=== PATIENT | male | born 1975 | race Caucasian/White ===

== ENCOUNTER 2018-06-10 13:09 | Inpatient (IN) | payer BC, OTHER ==
[~2018-06-10] VITALS: Ht 165.1 cm; Wt 103.1 kg
[2018-06-10] VITALS (14 sets, daily range): BP systolic 106–150; BP diastolic 68–100; PULSE 69–97; TEMP 36.8–36.9; O2SAT 93–97; Ht 165.1 cm; Wt 103.1 kg
[~2018-06-10 13:09] MED LIST: HYDR-5688 PO
[2018-06-10] MEDS ORDERED: ASPIRIN 81 MG CHEW PO STA (13:34)
[2018-06-10] MEDS ORDERED: NITROGLYCERIN 0.4 MG SL PER TAB CHARGE SL PRN ×2 (13:45→15:30)
--- NOTE | 2018-06-10 13:51 | EMERGENCY ROOM VISIT NOTE ---
ED Visit Note First contact with patient: 13:27 CHIEF COMPLAINT: Chest pain HISTORY OF PRESENTING ILLNESS: This is a 43-year-old male who presents to the emergency department with complaint of abrupt onset of midsternal chest pain that started at 1 PM today. Patient states pain radiates down his left arm. The pain started while he was at rest, and he has not noted an exertional component. He has had associated shortness of breath, nausea, and sweats. He describes the pain as severe and pressure-like, constant, nothing makes it better or worse, currently rates as 10/10. He did not take any medications for his pain. Of note, the patient states that he woke up this morning with some indigestion and burping up a "rotten eggs taste" and has been having indigestion off and on all morning. He denies any history of indigestion or GERD and states this is unusual for him. He did not take any medications for his indigestion. He uses chewing tobacco daily. He has a history of diabetes, but states that he lost a lot of weight and does not need to be on any medications and is not on any insulin. He denies any history of hypertension, hyperlipidemia. Grandfather with history of coronary artery disease, no other family history of this. REVIEW OF SYSTEMS: A complete 10 point review of systems was reviewed with the patient with pertinent positives and negatives as per history of present illness. All else were negative. PAST MEDICAL HISTORY: Reviewed in chart, see problem list below. SOCIAL HISTORY: Lives at home. Denies smoking, but does chew tobacco. ALLERGIES: Reviewed in chart, see below. PHYSICAL EXAM: CONSTITUTIONAL: Cooperative. Appears uncomfortable and in pain. Diaphoretic, tearful, hyperventilating. No pallor. Able to speak in full sentences. HEENT: Normocephalic, atraumatic. Pupils equal, round and reactive to light, EOMI. TMs normal. Pharynx normal. NECK: Supple, full active range of motion without discomfort. RESPIRATORY: Clear to auscultation bilaterally with no wheezing, crackles, rhonchi or stridor. Equal expansion bilaterally. CARDIOVASCULAR: Regular rate and rhythm with no murmurs, rubs or gallops. Normal peripheral perfusion. No peripheral edema. GASTROINTESTINAL: Soft, nontender, nondistended. No palpable masses or HSM. Bowel sounds present in all quadrants. MUSCULOSKELETAL: Full range of motion of all joints without discomfort. INTEGUMENTARY: No rash or other significant dermatologic conditions noted. NEUROLOGIC: Alert and oriented X 4 with normal affect. Normal strength and sensation in all 4 extremities. No focal neurologic deficits noted. Normal speech. ED COURSE AND MEDICAL DECISION MAKING: CC: Patient presenting with complaint of chest pain DIFFERENTIAL DIAGNOSIS: Includes, but not limited to acute coronary syndrome, pulmonary embolism, aortic dissection, pneumothorax, pericarditis, myocarditis, anxiety, musculoskeletal pain, GERD, costochondritis, pneumonia, among others. INTERPRETATION OF LABS: No leukocytosis, no anemia, normal platelets, hyperglycemia, no other significant electrolyte abnormalities, normal renal function, normal liver enzymes and lipase. POC troponin is elevated. CPK and CK-MB normal. IMAGIN view chest x-ray reviewed by myself and read by the radiologist and shows no acute cardiopulmonary disease by my interpretation. EKG: Initial EKG performed at 1310, shows normal sinus rhythm with a rate of 9/ min, no acute ST or T-wave changes appreciated, no ectopy, possible Q waves in lead III by my interpretation. Repeat EKG performed at 1356, showing sinus tachycardia with a rate of 112 bpm and now concerning for acute ST elevation in the inferior leads concerning for acute STEMI. MEDICATION RECONCILIATION: I attest that I have personally reviewed the patient 's current medication list. INITIAL VITAL SIGNS REVIEW: I reviewed the patient's initial vital signs and interpret them as follows: T: Afebrile; BP: Hypertensive; HR: Within normal limits; RR: Tachypneic; Pulse Ox: Within normal limits on room air. Blood pressure screening: The patient was found to have an elevated blood pressure and was referred to the acute cardiology team for further management. SUMMARY: Patient was evaluated at bedside, history and physical exam performed. Patient is alert and oriented, appears in acute distress, diaphoretic and tachypneic, and appears to be in severe pain. Patient's symptoms and history most concerning for acute coronary syndrome, 324 mg chewable aspirin ordered and sublingual nitroglycerin ordered. Review of initial EKGs with no acute ST or T-wave changes, possible Q-wave development in lead III. Orders were placed at bedside for labs and chest x-ray to evaluate for cardiopulmonary disease. Patient discussed with Dr. Valiente, who agrees with my assessment and plan. Labs and imaging reviewed as above. POC troponin is elevated at 0.080. Repeat EKG reviewed now concerning for an acute STEMI, most likely an acute inferior infarct. Discussed with Dr. Valiente, who also reviewed EKG and agrees with calling Heart Alert. Heart Alert was called at 1401, Dr. Grider at bedside with plans to take patient to the Diabetes Manager. Patient reassessed multiple times throughout ED stay, chest pain was unrelieved with nitroglycerin, IV morphine was ordered. 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 Patient was stable at time of transport to the Diabetes Manager. CRITICAL CARE NOTE: I have personally spent greater than 30 minutes of critical care time in the direct management of this patient. This includes bedside care, interpretation of diagnostic studies, and testing, discussion with consultants, patient, and family members, and other required patient management activities. This 30 minutes is in excess of all separately billable procedures. Problem List Medical Problems: (1) Obstructive sleep apnea Status: Chronic Current/Historical Medications Scheduled PRN Hydrocodone/Acetaminophen 5MG/325MG ([place] 5MG/325MG), 1-2 TABLETS PO Q6 PRN for Pain Allergies Coded Allergies: Penicillins (Verified Allergy, Unknown, ?, 05/22/15) PT STATES, "MY MOTHER ALWAYS TOLD ME I WAS ALLERGIC TO PENICILLIN. I DONT REMEMBER WHAT REACTION I HAD" Vital Signs Date Time Temp Pulse Resp B/P (MAP) Pulse Ox O2 Delivery O2 Flow Rate FiO2 06/10/18 14:09 92 30 99 Room Air 06/10/18 14:04 90 06/10/18 13:48 158/119 06/10/18 13:43 167/122 06/10/18 13:39 88 99 Room Air 06/10/18 13:37 Room Air 06/10/18 13:37 Room Air 06/10/18 13:32 185/144 06/10/18 13:25 156/120 06/10/18 13:24 89 06/10/18 13:09 36.8 94 28 183/123 98 Room Air Laboratory Results 06/10/18 13:25 Red Blood Count 4.81, Mean Corpuscular Volume 89.2, Mean Corpuscular Hemoglobin 33.1, Mean Corpuscular Hemoglobin Concent 37.1, Mean Platelet Volume 10.9, Neutrophils (%) (Auto) 55.7, Lymphocytes (%) (Auto) 33.8, Monocytes (%) (Auto) 8.2, Eosinophils (%) (Auto) 1.5, Basophils (%) (Auto) 0.7, Neutrophils # (Auto) 4.13, Lymphocytes # (Auto) 2.51, Monocytes # (Auto) 0.61, Eosinophils # (Auto) 0.11, Basophils # (Auto) 0.05 06/10/18 13:25 Test 06/10/18 13:25 06/10/18 13:29 06/10/18 15:18 White Blood Count 7.42 K/uL (4.8-10.8) Red Blood Count 4.81 M/uL (4.7-6.1) Hemoglobin 15.9 g/dL (14.0-18.0) Hematocrit 42.9 % (42-52) Mean Corpuscular Volume 89.2 fL (80-100) Mean Corpuscular Hemoglobin 33.1 pg (25-34) Mean Corpuscular Hemoglobin Concent 37.1 g/dl (32-36) Platelet Count 246 K/uL (130-400) Mean Platelet Volume 10.9 fL (7.4-10.4) Neutrophils (%) (Auto) 55.7 % Lymphocytes (%) (Auto) 33.8 % Monocytes (%) (Auto) 8.2 % Eosinophils (%) (Auto) 1.5 % Basophils (%) (Auto) 0.7 % Neutrophils # (Auto) 4.13 K/uL (1.4-6.5) Lymphocytes # (Auto) 2.51 K/uL (1.2-3.4) Monocytes # (Auto) 0.61 K/uL (0.11-0.59) Eosinophils # (Auto) 0.11 K/uL (0-0.5) Basophils # (Auto) 0.05 K/uL (0-0.2) RDW Standard Deviation 40.3 fL (36.4-46.3) RDW Coefficient of Variation 12.7 % (11.5-14.5) Immature Granulocyte % (Auto) 0.1 % Immature Granulocyte # (Auto) 0.01 K/uL (0.00-0.02) Anion Gap 12.0 mmol/L (3-11) Est Creatinine Clear Calc Drug Dose 99.9 ml/min Estimated GFR () 96.7 Estimated GFR (Non- 83.4 BUN/Creatinine Ratio 14.4 (10-20) Calcium Level 9.7 mg/dl (8.5-10.1) Total Bilirubin 0.6 mg/dl (0.2-1) Direct Bilirubin < 0.1 mg/dl (0-0.2) Aspartate Amino Transf (AST/SGOT) 19 U/L (15-37) Alanine Aminotransferase (ALT/SGPT) 30 U/L (12-78) Alkaline Phosphatase 56 U/L (45-117) Total Creatine Kinase 182 U/L (39-308) Creatine Kinase MB 1.9 ng/ml (0.5-3.6) Creatine Kinase MB Ratio 1.0 (0-3.0) Total Protein 7.7 gm/dl (6.4-8.2) Albumin 4.3 gm/dl (3.4-5.0) Lipase 90 U/L (73-393) Bedside Troponin I 0.080 ng/ml (0-0.045) Medications Administered Medications (Trade) Dose Ordered Sig/Denise Route Start Time Stop Time Status Last Admin Dose Admin Nitroglycerin (Nitrostat Tab) 0.4 mg Q5M PRN SL 06/10/18 13:45 07/10/18 13:44 06/10/18 13:48 0.4 MG Aspirin (Aspirin Chew) 324 mg NOW STAT PO 06/10/18 13:34 06/10/18 13:36 DC 06/10/18 13:34 324 MG Morphine Sulfate (MoRPHine SULFATE INJ) 4 mg NOW STAT IV 06/10/18 13:52 06/10/18 13:53 DC 06/10/18 13:52 4 MG Heparin Sodium (Porcine) (Heparin Sq 5000 Unit/0.5ml) 5,000 unit STK-MED ONCE .ROUTE 06/10/18 14:04 06/10/18 14:05 DC 06/10/18 14:04 4,000 UNIT Midazolam HCl (Versed Inj) 2 mg STK-MED ONCE .ROUTE 06/10/18 14:11 06/10/18 14:12 DC 06/10/18 14:11 1 MG Fentanyl Citrate (Fentanyl Inj) 100 mcg STK-MED ONCE .ROUTE 06/10/18 14:11 06/10/18 14:12 DC 06/10/18 14:11 25 MCG Heparin Sodium (Porcine) (Heparin Iv Bolus) 10,000 unit STK-MED ONCE .ROUTE 06/10/18 14:12 06/10/18 14:13 DC 06/10/18 14:12 10,000 UNIT Metoprolol Tartrate (Lopressor Iv) 5 mg STK-MED ONCE .ROUTE 06/10/18 14:49 06/10/18 14:50 DC 06/10/18 14:49 5 MG Ticagrelor (Brilinta Tab) 180 mg STK-MED ONCE PO 06/10/18 15:23 06/10/18 15:24 DC 06/10/18 15:23 180 MG Departure Information Impression Primary Impression: Acute myocardial infarction Dispostion Admitted as an inpatient (Diabetes Manager) Condition FAIR Referrals Carlos Rider M.D.([facility]) (PCP) Patient Instructions My [facility] Problem Qualifiers Primary Impression: Acute myocardial infarction Myocardial infarction type: ST elevation myocardial infarction Involved coronary artery: unspecified coronary artery Qualified Codes: I21.3 - ST elevation (STEMI) myocardial infarction of unspecified site
[2018-06-10] MEDS ORDERED: MoRPHine SULFATE 4 MG/ML 1 ML CARP\\VIAL IV STA (13:52)
[2018-06-10 14:00] LABS: BASO % 0.7 %; BASO ABS # 0.05 K/uL (0-0.2); EOS % 1.5 %; EOS ABS # 0.11 K/uL (0-0.5); HEMATOCRIT 42.9 % (42-52); HEMOGLOBIN 15.9 g/dL (14.0-18.0); IG# 0.01 K/uL (0.00-0.02); LYMPH % 33.8 %; LYMPH ABS # 2.51 K/uL (1.2-3.4); MEAN CELL VOLUME 89.2 fL (80-100); MEAN CORPUSCULAR HEMOGLOBIN 33.1 pg (25-34); MEAN CORPUSCULAR HGB CONC 37.1 g/dl (32-36); MEAN PLATELET VOLUME 10.9 fL (7.4-10.4); MONO % 8.2 %; MONO ABS # 0.61 K/uL (0.11-0.59); NEUT % 55.7 %; NEUT ABS # 4.13 K/uL (1.4-6.5); PLATELET COUNT 246 K/uL (130-400); RED CELL DISTRIBUTION WIDTH CV 12.7 % (11.5-14.5); RED CELL DISTRIBUTION WIDTH SD 40.3 fL (36.4-46.3); WHITE BLOOD COUNT 7.42 K/uL (4.8-10.8)
[2018-06-10] MEDS ORDERED: HEPARIN SOD 5000 UNIT/0.5 ML CARP ONE (14:04)
--- NOTE | 2018-06-10 14:05 | DIAGNOSTIC IMAGING REPORT ---
SINGLE VIEW CHEST CLINICAL HISTORY: Atypical chest pain. FINDINGS: An AP, portable, upright chest radiograph is compared to study dated 05/08/2009. The examination is degraded by portable technique and apical lordotic positioning. The cardiomediastinal silhouette is unremarkable. The lungs and pleural spaces are clear. No pneumothorax is seen. The bony thorax is grossly intact. IMPRESSION: No active disease in the chest. Electronically signed by: Elroy Mejia M.D. 06/10/2018 2:04 PM Dictated Date/Time: 06/10/2018 2:01 PM
[2018-06-10] MEDS ORDERED: MIDAZOLAM HCL 1 MG/ML 2ML VIAL ONE (14:11)
[2018-06-10] MEDS ORDERED: FENTANYL CITRATE INJ 50 MCG/1 ML 2 ML VIAL ONE (14:11)
[2018-06-10] MEDS ORDERED: NiCARDipine HCL INJ 2.5 MG/ML 10 ML AMP ONE (14:12)
[2018-06-10] MEDS ORDERED: HEPARIN SOD (PORCINE) 1000 UNIT/ML 10 ML VIAL ONE (14:12)
[2018-06-10] MEDS ORDERED: NITROGLYCERIN/D5W 100MCG/ML 20ML SYR ONE (14:15)
[2018-06-10 14:23] LABS: ALBUMIN 4.3 gm/dl (3.4-5.0); ALKALINE PHOSPHATASE 56 U/L (45-117); ALT/SGPT 30 U/L (12-78); AST/SGOT 19 U/L (15-37); BLOOD UREA NITROGEN 15 mg/dl (7-18); CALCIUM 9.7 mg/dl (8.5-10.1); CARBON DIOXIDE 24 mmol/L (21-32); CREATININE 1.07 mg/dl (0.60-1.40); GLUCOSE 244 mg/dl (70-99); LIPASE 90 U/L (73-393); POTASSIUM 3.6 mmol/L (3.5-5.1); SODIUM 138 mmol/L (136-145); TOTAL PROTEIN 7.7 gm/dl (6.4-8.2)
[2018-06-10 14:31] LABS: CKMB 1.9 ng/ml (0.5-3.6)
[2018-06-10] MEDS ORDERED: METOPROLOL TARTRATE 1 MG/ML VIAL ONE (14:49)
[2018-06-10] MEDS ORDERED: TICAGRELOR 90 MG TAB PO ONE (15:23)
[2018-06-10] MEDS ORDERED: LORAZEPAM 0.5 MG TAB PO PRN (15:30)
[2018-06-10] MEDS ORDERED: MoRPHine SULFATE 2 MG/ML CARP IV PRN (15:30)
[2018-06-10] MEDS ORDERED: ATROPINE SULFATE 0.1 MG/ML 5ML SYR IV PRN (15:30)
[2018-06-10] MEDS ORDERED: ONDANSETRON INJ 2 MG/ML 2 ML VIAL IV PRN (15:30)
[2018-06-10] MEDS ORDERED: ACETAMINOPHEN 325 MG TAB PO PRN (15:30)
[2018-06-10] MEDS ORDERED: ONDANSETRON INJ 8 MG in DEXTROSE 5% 50ML 50 ML IV PRN (15:30)
[2018-06-10] MEDS ORDERED: LORAZEPAM INJ 0.5 MG in SYRINGE 0.75 ML IV PRN (15:30)
[2018-06-10 15:40] LABS: PTT PATIENT 20.9 SECONDS (21.0-31.0)
[2018-06-10] MEDS ORDERED: SODIUM CHLORIDE 0.9% 1000ML 1,000 ML IV SCH (16:00)
[2018-06-10] MEDS ORDERED: NITROGLYCERIN 2% OINTMENT 30GM TUBE EXT ONE (16:12)
[2018-06-10] MEDS: NITROGLYCERIN 2% OINTMENT 30GM TUBE EXT SCH ×2 (16:19→23:14)
[2018-06-10] MEDS ORDERED: GLUCOSE 40% GEL 15 GM TUBE PO PRN (16:30)
[2018-06-10] MEDS ORDERED: CARBOHYDRATES FOR HYPOGLYCEMIA PO PRN (16:30)
[2018-06-10] MEDS ORDERED: GLUCOSE 10 TABS/TUBE PO PRN (16:30)
[2018-06-10] MEDS ORDERED: GLUCAGON FOR INJ 1 MG VIAL SQ PRN (16:30)
[2018-06-10] MEDS ORDERED: DEXTROSE 50% 50 ML SYR IV PRN (16:30)
--- NOTE | 2018-06-10 16:31 | Critical Care Consultation ---
Critical Care Consultation Date of Consultation: Jun 10, 2018. Attending Physician: Leanna Mejia MD Reason for Consultation: ST elevation [place]. History of Present Illness Dear Dr. Grider: Thank you for your kind referral Mr. [place] to critical care service. This is 43-year-old gentleman with history of diabetes, morbid obesity, non-smoker, no history of hypertension, not on treatment for lipid-lowering agent, does have a family history with coronary artery disease in his grandfather, presented to the hospital after he felt chest pain mainly in the substernal area radiating to his left arm. The patient was loading his truck to go camping. The pain become more excruciating and become 10 out of 10 and lasted for over than half an hour where he presented to the hospital via the ambulance. The patient in the ED underwent a workup for ACS, found to have ST elevation in 2, 3 and aVF. Heart alert was called and Dr. Grider took the patient to the [facility] where he underwent PCI. He did have occlusion to the left circumflex, with one FLORENCE placed. Another branch was not approachable or amenable to stenting according to Dr. Shepard. Right radial approach was used for the cardiac cath. The patient in the ICU, has been feeling much better, his chest pain is down to 2/10. He denies any dizziness, shortness of breath, no pain in his arms, does not have any sore throat heartburn or abdominal pain, there is no free nausea. The rest of his review of system was totally unremarkable. His vital signs were reported to be with a blood pressure 150 over 83, heart rate of 90 normal sinus rhythm, respiratory rate of 22 and O2 sat is 96% on room air. Family History FHx: diabetes Social History Smoking Status: Never Smoker Drug Use: none Marital Status: Housing Status: lives with family Occupation Status: employed Allergies Coded Allergies: Penicillins (Verified Allergy, Unknown, ?, 05/22/15) PT STATES, "MY MOTHER ALWAYS TOLD ME I WAS ALLERGIC TO PENICILLIN. I DONT REMEMBER WHAT REACTION I HAD" Home Medications Scheduled PRN Hydrocodone/Acetaminophen 5MG/325MG ([place] 5MG/325MG), 1-2 TABLETS PO Q6 PRN for Pain Current Inpatient Medications Current Inpatient Medications Medications (Trade) Dose Ordered Sig/Denise Route Start Time Stop Time Status Last Admin Dose Admin Nitroglycerin (Nitrostat Tab) 0.4 mg UD PRN SL 06/10/18 15:30 07/10/18 15:29 Sodium Chloride 1,000 ml @ 80 mls/hr [id number] IV 06/10/18 16:00 06/10/18 23:59 Atropine Sulfate (Atropine Sulfate 0.1mg/ml Inj) 0.5 mg ONE PRN IV 06/10/18 15:30 07/10/18 15:29 Ondansetron HCl (Zofran Inj) 4 mg Q6H PRN IV 06/10/18 15:30 07/10/18 15:29 Ondansetron HCl 8 mg/Dextrose 54 ml @ 200 mls/hr Q6H PRN IV 06/10/18 15:30 07/10/18 15:29 Aspirin (Ecotrin Tab) 81 mg QAM PO 06/11/18 09:00 07/11/18 08:59 Metoprolol Tartrate (Lopressor Tab) 25 mg Q12 PO 06/10/18 21:00 07/10/18 20:59 Lisinopril (Zestril Tab) 5 mg QAM PO 06/11/18 09:00 07/11/18 08:59 Acetaminophen (Tylenol Tab) 650 mg Q4H PRN PO 06/10/18 15:30 07/10/18 15:29 Morphine Sulfate (MoRPHine SULFATE INJ) 2 mg Q5M PRN IV 06/10/18 15:30 06/24/18 15:29 Lorazepam 0.5 mg/ Syringe 1 ml @ 1 mls/min Q6H PRN IV 06/10/18 15:30 07/10/18 15:29 Lorazepam (Ativan Tab) 0.5 mg Q6H PRN PO 06/10/18 15:30 07/10/18 15:29 Atorvastatin Calcium (Lipitor Tab) 80 mg QAM PO 06/11/18 09:00 07/11/18 08:59 Ticagrelor (Brilinta Tab) 90 mg BID PO 06/10/18 21:00 07/10/18 20:59 Nitroglycerin (Nitroglycerin 2% Oint) 1 inch Q6H EXT 06/10/18 16:30 07/10/18 16:29 Review of Systems Constitutional: No fever, No chills, No sweats, No weight loss, No weakness, No fatigue, No problem reported Eyes: No worsening of vision, No eye pain, No redness, No discharge, No diplopia, No problem reported ENT: No hearing loss, No unusual epistaxis, No nasal symptoms, No sore throat, No tinnitus, No dental problems, No trouble swallowing, No problem reported Respiratory: No cough, No sputum, No wheezing, No shortness of breath, No dyspnea on exertion, No dyspnea at rest, No hemoptysis, No problem reported Cardiovascular: + chest pain Abdomen: No pain, No nausea, No vomiting, No diarrhea, No constipation, No GI bleeding, No problem reported Musculoskeletal: + problem reported (Referred pain to the left arm.) Neurologic: No memory loss, No paralysis, No weakness, No numbness/tingling, No vertigo, No balance problems, No problem reported Psychiatric: No depression symptoms, No anhedonism, No anxiety, No insomnia, No substance abuse, No problem reported Endocrine: No fatigue, No excessive thirst, No excessive urination, No problem reported Hematologic / Lymphatic: No abnormal bleeding/bruising, No clotting problems, No swollen lymph nodes, No night sweats, No problem reported Physical Exam Date Time Temp Pulse Resp B/P (MAP) Pulse Ox O2 Delivery O2 Flow Rate FiO2 06/10/18 15:32 65 16 129/89 (102) 95 Room Air 06/10/18 15:24 65 16 132/90 (104) 95 Room Air 06/10/18 14:09 92 30 99 Room Air 06/10/18 14:04 90 06/10/18 13:48 158/119 06/10/18 13:43 167/122 06/10/18 13:39 88 99 Room Air 06/10/18 13:37 Room Air 06/10/18 13:37 Room Air 06/10/18 13:32 185/144 06/10/18 13:25 156/120 06/10/18 13:24 89 06/10/18 13:09 36.8 94 28 183/123 98 Room Air General Appearance: well-appearing Eyes: EOMI ENT: normal mouth exam, normal throat exam Neck: trachea midline Respiratory: breath sounds normal, clear to auscultation, clear to percussion Cardiovasular: regular rate/rhythm, normal S1S2, no M/G/R, no murmur Abdomen: non tender, no masses, no guarding Lower Extremities: no edema Neuro: alert, oriented x 3, normal motor exam, normal sensation Psychiatric: normal affect, anxious Laboratory Results Last 24 Hours Test 06/10/18 13:25 06/10/18 13:29 White Blood Count 7.42 K/uL Red Blood Count 4.81 M/uL Hemoglobin 15.9 g/dL Hematocrit 42.9 % Mean Corpuscular Volume 89.2 fL Mean Corpuscular Hemoglobin 33.1 pg Mean Corpuscular Hemoglobin Concent 37.1 g/dl Platelet Count 246 K/uL Mean Platelet Volume 10.9 fL Neutrophils (%) (Auto) 55.7 % Lymphocytes (%) (Auto) 33.8 % Monocytes (%) (Auto) 8.2 % Eosinophils (%) (Auto) 1.5 % Basophils (%) (Auto) 0.7 % Neutrophils # (Auto) 4.13 K/uL Lymphocytes # (Auto) 2.51 K/uL Monocytes # (Auto) 0.61 K/uL Eosinophils # (Auto) 0.11 K/uL Basophils # (Auto) 0.05 K/uL RDW Standard Deviation 40.3 fL RDW Coefficient of Variation 12.7 % Immature Granulocyte % (Auto) 0.1 % Immature Granulocyte # (Auto) 0.01 K/uL Prothrombin Time 10.0 SECONDS Prothromb Time International Ratio 1.0 Activated Partial Thromboplast Time 20.9 SECONDS Partial Thromboplastin Ratio 0.8 Sodium Level 138 mmol/L Potassium Level 3.6 mmol/L Chloride Level 102 mmol/L Carbon Dioxide Level 24 mmol/L Anion Gap 12.0 mmol/L Blood Urea Nitrogen 15 mg/dl Creatinine 1.07 mg/dl Est Creatinine Clear Calc Drug Dose 99.9 ml/min Estimated GFR () 96.7 Estimated GFR (Non- 83.4 BUN/Creatinine Ratio 14.4 Random Glucose 244 mg/dl Calcium Level 9.7 mg/dl Total Bilirubin 0.6 mg/dl Direct Bilirubin < 0.1 mg/dl Aspartate Amino Transf (AST/SGOT) 19 U/L Alanine Aminotransferase (ALT/SGPT) 30 U/L Alkaline Phosphatase 56 U/L Total Creatine Kinase 182 U/L Creatine Kinase MB 1.9 ng/ml Creatine Kinase MB Ratio 1.0 Total Protein 7.7 gm/dl Albumin 4.3 gm/dl Triglycerides Level 523 mg/dl Cholesterol Level 198 mg/dl HDL Cholesterol 40 mg/dl LDL Cholesterol Direct 106 mg/dl LDL Cholesterol, Calculated mg/dl VLDL Cholesterol, Calculated mg/dl Cholesterol/HDL Ratio 5.0 Lipase 90 U/L Bedside Troponin I 0.080 ng/ml Diagnostic Results EKG was reviewed which showed ST elevation in lead II, III, aVF. Labs also were reviewed. Assessment & Plan 1. ST elevation [place]. Status post FLORENCE to the LCx. 2. Diabetes type 2. Appeared to be poorly controlled. 3. Obesity. 4. Hypertension. 5. Hyperlipidemia followed on this admission with triglycerides of over 500 and total cholesterol 198. Plan: 1. Monitor in the ICU. Post-cath. 2. Post cath management per cardiology. 3. Continue with aspirin and Brilinta. 4. Lipitor 80 mg p.o. daily. 5. Insulin sliding scale with basal at 4 units regular insulin pre-meal and before meals and at bedtime. 6. Nitroglycerin paste, patient blood pressure in the range of 450, possible anxiety and pain related. 7. Currently the patient is almost pain-free. Appears comfortable. 8. Echocardiogram in a.m. 9. Bedrest. 10. Right radial site appears well-maintained, tourniquet in place. Case discussed with multiple disciplines, appreciate all inputs. Critical care time spent with the patient was 35 minutes.
--- NOTE | 2018-06-10 16:38 | History and Physical ---
History & Physical Date & Time of Service: Jun 10, 2018 at 16:27 Chief Complaint: Chest Pain Primary Care Physician: Carlos Rider M.D.(CHEVY) History of Present Illness Source: patient, clinic records, hospital records Patient is a 43-year-old male with a PMH of DM II and tobacco use who presented earlier today after abrupt onset of chest pain at 1 PM. Patient was riding in the car when he experienced sudden, midsternal chest pain with radiation down left arm. Associated symptoms included shortness of breath, nausea and diaphoresis. Heart alert was called in the ED for inferior lead ST elevation and POC troponin was elevated to 0.08. Patient was taken to [facility] where Dr. Grider placed a stent in the left circumflex artery. Patient is recovering well in the ICU. Chest discomfort is a 3/10. Denies any lightheadedness, headache, visual changes, palpitations, shortness of breath, abdominal pain, nausea, vomiting or LE swelling. Chews tobacco daily. Was diagnosed with type 2 diabetes in the past and was on metformin and insulin but stopped taking medication after losing weight. Last hemoglobin A1c was 6.9 in 2014. No personal history of heart disease. Family history of heart disease ( grandfather). Denies history of hypertension or hyperlipidemia. Past Medical/Surgical History Medical Problems: (1) CAD (coronary artery disease) Permanent Comment: s/p stent to left circumflex 06/10/18 Status: Chronic (2) Diabetes mellitus, type II Status: Chronic (3) Obstructive sleep apnea Status: Chronic (4) Tobacco use disorder Status: Chronic Surgical Problems: (1) H/O hernia repair Status: Resolved (2) S/P hernia surgery Status: Resolved Family History FHx: diabetes Social History Smoking Status: Never Smoker Smokeless Tobacco Use: Yes (chews daily ) Alcohol Use: occasionally (3-4 drinks/month) Drug Use: none Marital Status: Housing status: lives with significant other Occupational Status: employed Immunizations History of Influenza Vaccine: N/A History of Tetanus Vaccine?: Yes Tetanus Immunization Date: May 09, 2009 History of Pneumococcal: No History of Hepatitis B Vaccine: Unknown Allergies Coded Allergies: Penicillins (Verified Allergy, Unknown, ?, 05/22/15) PT STATES, "MY MOTHER ALWAYS TOLD ME I WAS ALLERGIC TO PENICILLIN. I DONT REMEMBER WHAT REACTION I HAD" Home Medications Scheduled PRN Hydrocodone/Acetaminophen 5MG/325MG (Oolitic 5MG/325MG), 1-2 TABLETS PO Q6 PRN for Pain Review of Systems Ten systems reviewed and negative except as noted in the HPI. Physical Exam Vital Signs Date Time Temp Pulse Resp B/P (MAP) Pulse Ox O2 Delivery O2 Flow Rate FiO2 06/10/18 15:32 65 16 129/89 (102) 95 Room Air 06/10/18 15:24 65 16 132/90 (104) 95 Room Air 06/10/18 14:09 92 30 99 Room Air 06/10/18 14:04 90 06/10/18 13:48 158/119 06/10/18 13:43 167/122 06/10/18 13:39 88 99 Room Air 06/10/18 13:37 Room Air 06/10/18 13:37 Room Air 06/10/18 13:32 185/144 06/10/18 13:25 156/120 06/10/18 13:24 89 06/10/18 13:09 36.8 94 28 183/123 98 Room Air General Appearance: WD/WN, no apparent distress Head: normocephalic, atraumatic Eyes: normal inspection, PERRL, sclerae normal ENT: normal ENT inspection, hearing grossly normal, pharynx normal Neck: supple, thyroid normal, trachea midline Respiratory/Chest: chest non-tender, lungs clear, normal breath sounds, no respiratory distress, no accessory muscle use Cardiovascular: regular rate, rhythm, no murmur, normal peripheral pulses Abdomen/GI: non tender, soft, no organomegaly Extremities/Musculoskelatal: normal inspection, no calf tenderness, no pedal edema, + pertinent finding (R wrist access point clean, dry. No active bleeding) Neurologic/Psych: no motor/sensory deficits, alert, normal mood/affect, oriented x 3 Skin: normal color, warm/dry Diagnostics Laboratory Results Results Past 24 Hours Test 06/10/18 13:25 06/10/18 13:29 Range/Units White Blood Count 7.42 4.8-10.8 K/uL Red Blood Count 4.81 4.7-6.1 M/uL Hemoglobin 15.9 14.0-18.0 g/dL Hematocrit 42.9 42-52 % Mean Corpuscular Volume 89.2 80-100 fL Mean Corpuscular Hemoglobin 33.1 25-34 pg Mean Corpuscular Hemoglobin Concent 37.1 32-36 g/dl Platelet Count 246 130-400 K/uL Mean Platelet Volume 10.9 7.4-10.4 fL Neutrophils (%) (Auto) 55.7 % Lymphocytes (%) (Auto) 33.8 % Monocytes (%) (Auto) 8.2 % Eosinophils (%) (Auto) 1.5 % Basophils (%) (Auto) 0.7 % Neutrophils # (Auto) 4.13 1.4-6.5 K/uL Lymphocytes # (Auto) 2.51 1.2-3.4 K/uL Monocytes # (Auto) 0.61 0.11-0.59 K/uL Eosinophils # (Auto) 0.11 0-0.5 K/uL Basophils # (Auto) 0.05 0-0.2 K/uL RDW Standard Deviation 40.3 36.4-46.3 fL RDW Coefficient of Variation 12.7 11.5-14.5 % Immature Granulocyte % (Auto) 0.1 % Immature Granulocyte # (Auto) 0.01 0.00-0.02 K/uL Prothrombin Time 10.0 9.0-12.0 SECONDS Prothromb Time International Ratio 1.0 0.9-1.1 Activated Partial Thromboplast Time 20.9 21.0-31.0 SECONDS Partial Thromboplastin Ratio 0.8 Sodium Level 138 136-145 mmol/L Potassium Level 3.6 3.5-5.1 mmol/L Chloride Level 102 98-107 mmol/L Carbon Dioxide Level 24 21-32 mmol/L Anion Gap 12.0 3-11 mmol/L Blood Urea Nitrogen 15 7-18 mg/dl Creatinine 1.07 0.60-1.40 mg/dl Est Creatinine Clear Calc Drug Dose 99.9 ml/min Estimated GFR () 96.7 Estimated GFR (Non- 83.4 BUN/Creatinine Ratio 14.4 10-20 Random Glucose 244 70-99 mg/dl Calcium Level 9.7 8.5-10.1 mg/dl Total Bilirubin 0.6 0.2-1 mg/dl Direct Bilirubin < 0.1 0-0.2 mg/dl Aspartate Amino Transf (AST/SGOT) 19 15-37 U/L Alanine Aminotransferase (ALT/SGPT) 30 12-78 U/L Alkaline Phosphatase 56 45-117 U/L Total Creatine Kinase 182 39-308 U/L Creatine Kinase MB 1.9 0.5-3.6 ng/ml Creatine Kinase MB Ratio 1.0 0-3.0 Total Protein 7.7 6.4-8.2 gm/dl Albumin 4.3 3.4-5.0 gm/dl Triglycerides Level 523 0-150 mg/dl Cholesterol Level 198 0-200 mg/dl HDL Cholesterol 40 mg/dl LDL Cholesterol Direct 106 mg/dl LDL Cholesterol, Calculated mg/dl VLDL Cholesterol, Calculated mg/dl Cholesterol/HDL Ratio 5.0 Lipase 90 73-393 U/L Bedside Troponin I 0.080 0-0.045 ng/ml Microbiology Results 06/10/18 MRSA DNA Surveillance Screen, Received Pending Diagnostic Radiology CXR: IMPRESSION: No active disease in the chest. EKG Sinus tachycardia with ST elevation in leads II, III and aVF. Impression Assessment and Plan Patient is a 43-year-old male with a PMH of DM II and tobacco use who presented earlier today after abrupt onset of chest pain and is s/p stenting to left circumflex artery for acute inferior wall IL. Acute STEMI of inferior wall s/p FLORENCE to LCx -ACS risk factors include DM II (currently not on medications), tobacco use -Management per ICU, cardiology -Continue aspirin, Brilinta -Echo in AM DM II -Previously on metformin and insulin -Stopped taking medications after losing weight -Last a1c in records of 6.9 in 2015 -SSI while in-patient -Repeat a1c pending -Diabetic education Hyperlipidemia -Lipid panel with with triglycerides of over 500 and total cholesterol 198 -Lipitor 80mg initiated Elevated BP -One inch ntg paste Q6H Tobacco use disorder -Smoking cessation ordered, discussed DVT Ppx: Per cardiology Code status: FULL PCP: Adry Dispo: Admitted to ICU. Plan to return home once medically stable. Patient seen in collaboration with Dr. Hernandez. Please see addendum. I have seen and assessed the patient with my team's physician radiology assistant and agree with the assessment and plan as above and would like to add that patient is s/p cardiac cath with placement of stent and currently comfortable. He will stay overnight in the ICU bed for further monitoring. Will appreciate further cardiology recommendations Physical Exam General: no acute distress Lungs: clear to auscultation bilaterally Abdomen: soft, nontender positive bowel sounds Extremities: moves extremities Neurology: awake and alert and verbal Resuscitation Status VTE Prophylaxis Will order VTE Prophylaxis: Yes
--- NOTE | 2018-06-10 16:44 | EMERGENCY ROOM VISIT NOTE ---
ED Visit Note First contact with patient: 13:27 I saw the patient in B7 and initiated the heart alert. Cardiology came to the bedside and the patient was brought to the catheterization lab. I did initially receive the patient's EKGs from triage. Nursing was concerned about the patient's story. The patient may have had some very subtle changes in his inferior leads; however, not greater than 1 box on EKG. The nurse practitioner did pick up operator and see the patient. She did relate the story in the EKGs. Given the patient's concerning story I did reevaluate the patient and told the nurse practitioner to ensure that the patient had a repeat EKG completed. The patient's repeat EKG did show dynamic changes in the inferior and questionable lateral leads. The patient may have a little bit of lateral with posterior extension and/or inferior abnormalities. A HEART alert was initiated at the moment of seeing the repeat EKG. Patient had already been given aspirin and nitro without much avail. The patient had been ordered some morphine. I did present physically evaluate the patient myself. The patient was still experiencing chest pains. I did explain the current situation that the patient would likely go to the catheterization lab. Shortly thereafter the interventionalist did present and the patient was taken to the catheterization lab. DX: STEMI I have personally spent greater than 35 minutes of critical care time in the direct management of this patient. This includes bedside care, interpretation of diagnostic studies, and testing, discussion with consultants, patient, and family members, and other required patient management activities. This 35 minutes is in excess of all separately billable procedures.
[2018-06-10] MEDS: INSULIN ASPART 100 UNITS/ML 3 ML PEN SC SCH ×2 (16:49→21:00)
--- NOTE | 2018-06-10 16:51 | CARDIOLOGY CONSULTATION ---
DATE OF CONSULTATION: 06/10/2018 REFERRING PHYSICIAN: Ryan Grider DO REASON FOR CONSULTATION: STEMI. HISTORY OF PRESENT ILLNESS: Mr. Arguello is a 43-year-old gentleman who developed chest discomfort this a.m. He described a heartburn-like sensation which is unusual for him. The pain was waxing and waning. He went out to perform some physical activity at camp and noted a significant change in the severity of the discomfort. Pain increased to 10/10, described as a pressure. He came to the Emergency Department and was noted to have inferolateral ST elevations. He was taken to the cardiac catheterization lab urgently. Per discussion with the interventionalist, patient was noted to have occlusion of the distal circumflex and left posterolateral branch vessel. Stent was implanted to the left posterolateral branch; however, the distal circumflex could not be opened. He was transferred to the ICU in stable condition. Currently, he rates 2/10 chest discomfort which he feels as mild and much improved from presentation. His ECG demonstrates sinus rhythm with improvement of lateral ST elevations and subtle inferior ST elevation at this time. Blood pressure 150s/80s, heart rate in the 70s. Denies any recent exertional chest pain or unusual shortness of breath. He works folding laundry at a local [place] and denies any exertional symptoms or functional limitations, which would limit his work duties. Admits to chewing snuff daily. Denies recent orthopnea, PND, palpitations, lightheadedness, dizziness, syncope or near syncope. Notes intermittent lower extremity cramping at rest, which he utilizes potassium p.r.n. Denies personal history of coronary disease, congestive heart failure, dysrhythmia, or rheumatic fever as a child. Carries a history of diabetes diagnosed in 2014 with a hemoglobin A1c of 6.9%. He does not take any medications as an outpatient. REVIEW OF SYSTEMS: The pertinent positives are noted above, a comprehensive 10-system review is otherwise negative. PAST MEDICAL HISTORY: Diabetes type 2. PAST SURGICAL HISTORY: Denied. SOCIAL HISTORY: Daily tobacco user, snuff. Denies smoking. Denies alcohol or illicit drug use. ALLERGIES: PENICILLIN. FAMILY HISTORY: Grandfather with coronary disease in his 50. The patient does not know his father. MEDICATIONS: Currently not taking any outpatient medications. Chest x-ray on admission, no active disease. LABORATORY DATA: Sodium 138, potassium 3.6, chloride 102, CO2 24, BUN 15, creatinine is 1.07. Initial troponin 0.080. Random glucose 244. White blood cell count 7.42, hemoglobin is 15.9, platelet count is 246. Coagulation profile is pending. PHYSICAL EXAMINATION: VITAL SIGNS: Temperature is 36.8 degrees centigrade on presentation, pulse is 70 beats per minute and regular, respiratory rate 16 breaths per minute, blood pressure 155/72, SaO2 95% in room air. GENERAL: Obese, awake, alert, and oriented x3. HEENT: Mucous membranes moist. No scleral icterus. Conjunctivae pink. NECK: Supple, no JVD or HJR. No carotid bruit. HEART: Regular with a normal S1 and S2. There is no murmur, rub or gallop. LUNGS: Demonstrate clear breath sounds. No rales, rhonchi or wheeze. ABDOMEN: Soft, nontender. No rebound or guarding. Normal bowel sounds. EXTREMITIES: Warm and dry. There is no clubbing, cyanosis or edema. NEUROLOGIC: Demonstrates no focal motor deficit. The right upper extremity Hemoband is in place without ecchymosis or hematoma. FINAL IMPRESSION: 1. ST-elevation myocardial infarction with LPL and distal circumflex culprit. The patient is status post drug-eluting stent implantation to the LPL with residual total occlusion of his distal circumflex, which is managed medically. 2. Diabetes type 2 - nonmedicated with hyperglycemia. 3. Hypertension. 4. Dyslipidemia. PLAN, RECOMMENDATIONS, AND DISCUSSION: The patient has mild, 2/10 chest discomfort currently, which is secondary to his occluded distal circumflex. Recommend topical nitrates initially with transition to intravenous nitrates if the pain persists. Beta estrella, AASHISH inhibitor, and high dose statin therapy will be initiated today. Dual antiplatelet therapy has been given. He will continue aspirin plus Brilinta for minimum of 1 year post-percutaneous intervention. Resting 2D transthoracic echocardiogram will be performed for further evaluation of LV function. Continue telemetry monitoring and observation in the intensive care unit overnight. Thank you for allowing me to participate in the care of your patient.
--- NOTE | 2018-06-10 17:06 | CARDIAC CATH REPORT ---
REPORT OF CATH AND PCI INDICATION: Hyperacute ST elevation in the inferior leads, relatively early in onset of symptoms in an otherwise healthy 43-year-old male, not taking medications for hypertension, hyperlipidemia, diabetes mellitus with no known history of prior myocardial infarction or stroke. Not presenting in heart failure. PROCEDURES PERFORMED: Left heart catheterization, coronary cineangiography, PCI with drug-eluting stent x1, circumflex posterolateral branch radiological interpretation and supervision. METHOD: Upon arrival in the clinical lab assistant, patient was prepped and draped in the usual sterile fashion. After local infiltration of 2% lidocaine, a 6-Albanian sheath was placed in the right radial artery. Intra-arterial nicardipine and nitroglycerin administered. Intravenous heparin was administered and titrated throughout the case to an ACT on the order of 250 seconds. A 6-Albanian AR2 guiding catheter was advanced over wire under fluoroscopic guidance to the central circulation where it was aspirated and flushed. After confirmation of adequate waveform, it was advanced into the right coronary artery. Cineangiograms of the right coronary obtained and reviewed. The catheter removed from body over wire and sheath was aspirated and flushed. A 6-Albanian JL4 guiding catheter was advanced over wire under fluoroscopic guidance to the central circulation where it was aspirated and flushed. After confirmation of adequate waveform, it was advanced into the left main. Cineangiograms of the left circumflex posterolateral branch were obtained and reviewed. A 0.014-inch pilot instructor wire was advanced through the guiding catheter across the area of stenosis to the distal large low-rising circumflex posterolateral branch. A 2.0 15 angioplasty catheter was positioned in the ostium of this vessel inflated to maximum pressure of less than a minute and balloon was withdrawn. A 2.75 Xience 12 stent was positioned in the ostium of the circumflex posterolateral branch, inflated to maximum pressure of less than a minute, balloon was withdrawn. Multiple attempts with multiple wires were made at engaging the ostium of the distal circumflex beyond the circumflex posterolateral branch to no avail. Further attempts were abandoned. Final cineangiograms were obtained and the wire was removed from the coronary artery. Guiding catheter was removed from the left main under fluoroscopic guidance. Sheath aspired and flushed. (The left coronary catheter was used to cross the aortic valve in retrograde fashion. Left ventricular end diastolic pressure was measured. The cath was removed from the left ventricle to the aorta under continuous pressure monitoring.) COMPLICATIONS: None. FINDINGS: Left main is normal. Left anterior descending artery, first and second diagonal branches are free of significant disease. Left circumflex is large in caliber with a distal stent thrombotic total occlusion at the origin of a low-rising posterolateral branch. Marginal and 2 more proximal posterolateral branches are free of significant disease. The low-rising posterolateral branch has an ostial 90% stenosis. The right coronary artery is moderate in caliber with a mid 50% stenosis with posterior AV extension of the right coronary artery and posterolateral branches arising from it and the posterior descending artery are all free of significant disease. Left ventricular end diastolic pressure is normal. No significant aortic valve gradient was demonstrated. Final cineangiograms demonstrated no residual stenosis and no uncovered dissection of the circumflex posterolateral branch with continued occlusion of the very distal most portion of the nondominant circumflex. IMPRESSION: Successful AngioJet with drug-eluting stent placement circumflex posterolateral branch in a patient with acute inferior wall myocardial infarction. RECOMMENDATIONS: 1. Dual antiplatelet therapy per DAPT guidelines. 2. Medical therapy, post-CT echocardiogram to evaluate LV function.
[2018-06-10] MEDS: METOPROLOL TARTRATE 25 MG TAB PO SCH (20:57)
[2018-06-10] MEDS: TICAGRELOR 90 MG TAB PO SCH (20:57)
[2018-06-11] VITALS (19 sets, daily range): BP systolic 108–136; BP diastolic 54–86; PULSE 61–95; TEMP 36.5–37.5; O2SAT 93–97
[2018-06-11] MEDS: NITROGLYCERIN 2% OINTMENT 30GM TUBE EXT SCH (04:36)
[2018-06-11 05:08] LABS: BASO % 0.3 %; BASO ABS # 0.03 K/uL (0-0.2); EOS % 1.3 %; EOS ABS # 0.15 K/uL (0-0.5); HEMATOCRIT 38.8 % (42-52); HEMOGLOBIN 13.7 g/dL (14.0-18.0); IG# 0.03 K/uL (0.00-0.02); LYMPH % 13.7 %; LYMPH ABS # 1.57 K/uL (1.2-3.4); MEAN CELL VOLUME 91.5 fL (80-100); MEAN CORPUSCULAR HEMOGLOBIN 32.3 pg (25-34); MEAN CORPUSCULAR HGB CONC 35.3 g/dl (32-36); MEAN PLATELET VOLUME 10.6 fL (7.4-10.4); MONO % 8.4 %; MONO ABS # 0.96 K/uL (0.11-0.59); NEUT ABS # 8.68 K/uL (1.4-6.5); PLATELET COUNT 214 K/uL (130-400); RED CELL DISTRIBUTION WIDTH SD 43.2 fL (36.4-46.3); WHITE BLOOD COUNT 11.42 K/uL (4.8-10.8)
[2018-06-11 05:37] LABS: CALCIUM 7.8 mg/dl (8.5-10.1); CREATININE 0.87 mg/dl (0.60-1.40); POTASSIUM 3.8 mmol/L (3.5-5.1)
[2018-06-11 07:11] LABS: HEMOGLOBIN A1C 8.2 % (4.5-5.6)
[2018-06-11] MEDS: TICAGRELOR 90 MG TAB PO SCH ×2 (07:40→20:30)
[2018-06-11] MEDS: METOPROLOL TARTRATE 25 MG TAB PO SCH ×3 (07:40→21:57)
[2018-06-11] MEDS: ASPIRIN 81 MG ECTAB PO SCH (07:41)
[2018-06-11] MEDS: LISINOPRIL 5 MG TAB PO SCH (07:41)
[2018-06-11] MEDS: ATORVASTATIN 40 MG TAB PO SCH (07:41)
[2018-06-11] MEDS: INSULIN ASPART 100 UNITS/ML 3 ML PEN SC SCH ×4 (07:43→20:32)
--- NOTE | 2018-06-11 08:46 | ECHOCARDIOGRAM REPORT ---
*NOTICE TO RECEIVING REPUBLICAN AGENCY This information is strictly Confidential and protected under [place] law. [place] law prohibits you from making any further disclosure of this information unless further disclosure is expressly permitted by the written consent of the person to whom it pertains or is authorized by law. A general authorization for the release of medical or other information is not sufficient for this purpose. Hospital accepts no responsibility if the information is made available to any other person, INCLUDING THE PATIENT. Interpretation Summary * Name: ELINA JASON Study Date: 06/11/2018 07:44 AM BP: 129/89 mmHg * Patient Location: [facility] [place]\S\E104\S\1 HR: 65 * : 1975 (M/d/yyyy) Gender: Male Height: 66 in * Age: 43 yrs Ethnicity: [place] Weight: 235 lb * Ordering Physician: Ryan Grider * Referring Physician: Self, Referred * Performed By: Aspen Pimentel RDCS * * Reason For Study: AMI * BSA: 2.1 m2 * -- Conclusions -- * The left ventricle is normal in size. * There is mild concentric left ventricular hypertrophy. * Left ventricular systolic function is normal. * The left ventricular wall motion is normal. * Ejection Fraction = 60-65%. * There is an abnormal relaxation pattern of the septum. * There is no significant valvular disease * There is no pericardial effusion. Procedure Details * A complete two-dimensional transthoracic echocardiogram was performed (2D, M-mode, Doppler and color flow Doppler). Left Ventricle * The left ventricle is normal in size. * There is mild concentric left ventricular hypertrophy. * Ejection Fraction = 60-65%. * Left ventricular systolic function is normal. * The left ventricular wall motion is normal. Right Ventricle * The right ventricle is normal in size and function. Atria * The left atrial size is normal. * Right atrial size is normal. * No ASD detected; PFO is not assessed. Mitral Valve * The mitral valve is normal. * There is no mitral valve stenosis. * There is trace mitral regurgitation. Tricuspid Valve * The tricuspid valve is normal. * There is no tricuspid stenosis. * There is trace tricuspid regurgitation. Aortic Valve * The aortic valve is trileaflet. * No hemodynamically significant valvular aortic stenosis. * No aortic regurgitation is present. Pulmonic Valve * The pulmonic valve is not well visualized. Great Vessels * The aortic root is normal size. Pericardium/Pleural * There is no pericardial effusion. Great Vessels * Normal inferior vena cava diameter and respiratory variation suggests normal central venous pressure. Left Ventricular Diastolic Function * There is an abnormal relaxation pattern of the septum. MMode 2D Measurements and Calculations IVSd 10 cm LVIDd 4.6 cm LVIDs 2.9 cm LVPWd 1.1 cm IVS/LVPW 0.94 FS 36.3 % EDV(Teich) 95.6 ml ESV(Teich) 32.4 ml EF(Teich) 66.1 % EDV(cubed) 95.2 ml ESV(cubed) 24.6 ml EF(cubed) 74.2 % LV mass(C)d 163.1 grams LV mass(C)dI 76.1 grams/m\S\2 SV(Teich) 63.2 ml SI(Teich) 29.5 ml/m\S\2 SV(cubed) 70.6 ml SI(cubed) 33.0 ml/m\S\2 Ao root diam 3.7 cm Ao root area 10.9 cm\S\2 ACS 2.0 cm LA dimension 3.4 cm asc Aorta Diam 3.7 cm LA/Ao 0.93 LVOT diam 2.0 cm LVOT area 3.0 cm\S\2 LVAd ap4 28.4 cm\S\2 LVLd ap4 8.5 cm EDV(MOD-sp4) 79.0 ml EDV(sp4-el) 80.2 ml LVAs ap4 16.0 cm\S\2 LVLs ap4 6.6 cm ESV(MOD-sp4) 32.6 ml ESV(sp4-el) 33.0 ml EF(MOD-sp4) 58.8 % EF(sp4-el) 58.9 % LVAd ap2 27.3 cm\S\2 LVLd ap2 7.9 cm EDV(MOD-sp2) 75.7 ml EDV(sp2-el) 80.4 ml LVAs ap2 14.9 cm\S\2 LVLs ap2 6.6 cm ESV(MOD-sp2) 28.3 ml ESV(sp2-el) 28.5 ml EF(MOD-sp2) 62.6 % EF(sp2-el) 64.5 % LVLd %diff -8.53 % EDV(MOD-bp) 80.1 ml LVLs %diff 0.14 % ESV(MOD-bp) 30.0 ml EF(MOD-bp) 62.6 % SV(MOD-sp4) 46.4 ml SI(MOD-sp4) 21.7 ml/m\S\2 SV(MOD-sp2) 47.3 ml SI(MOD-sp2) 22.1 ml/m\S\2 SV(MOD-bp) 50.2 ml SI(MOD-bp) 23.4 ml/m\S\2 SV(sp4-el) 47.3 ml SI(sp4-el) 22.1 ml/m\S\2 SV(sp2-el) 51.9 ml SI(sp2-el) 24.2 ml/m\S\2 Doppler Measurements and Calculations MV E max tena 82.7 cm/sec MV A max tena 73.5 cm/sec MV E/A 1.1 MV dec time 0.19 sec Ao V2 max 128.3 cm/sec Ao max PG 6.6 mmHg Ao max PG (full) 3.0 mmHg [place](V,A) 2.2 cm\S\2 [place](V,D) 2.2 cm\S\2 LV V1 max PG 3.6 mmHg LV V1 max 94.4 cm/sec PA V2 max 81.1 cm/sec PA max PG 2.6 mmHg PA acc slope 546.5 cm/sec\S\2 PA acc time 0.12 sec TR max tena 85.4 cm/sec PA pr(Accel) 24.8 mmHg
--- NOTE | 2018-06-11 10:41 | Critical Care Progress Note ---
Critical Care Progress Note Date of Service Jun 11, 2018. Attending Dr. Mejia Subjective The patient has uneventful night, no chest pain was reported, blood pressure has been better controlled, tolerating oral intake, ambulating to the bathroom. Objective Physical exam on 06/11/2018 showed stable vital signs, O2 saturation is 96% on room air, blood pressure 136/77 with a map of 105, respiratory rate 22, S1-S2 regular rate and rhythm, distant breath sounds bilaterally, abdomen is benign, right radial site appears well-maintained, no edema in the periphery. His laboratory also were reviewed and appear to be stable. Assessment & Plan 1. ST elevation MD, status post 1 [place]OR[place] to LCx. 2. Hypertension. 3. Hyperlipidemia. 4. Diabetes. 5. ACS, resolved. Plan: 1. Continue post PCI treatment per cardiology, appreciate their input. 2. Ambulate when possible. 3. Patient is currently on antiplatelet therapy with aspirin and Brilinta, Lipitor, Lopressor, AASHISH inhibitor. 4. Glucose control with insulin for now. Metformin was held. 5. Disposition plan per Dr. Hernandez and cardiology. Case discussed with the staff on rounds and details, CCT was 35 minutes. Data Medications: Current Inpatient Medications Medications (Trade) Dose Ordered Sig/Denise Route Start Time Stop Time Status Last Admin Dose Admin Nitroglycerin (Nitrostat Tab) 0.4 mg UD PRN SL 06/10/18 15:30 07/10/18 15:29 Atropine Sulfate (Atropine Sulfate 0.1mg/ml Inj) 0.5 mg ONE PRN IV 06/10/18 15:30 07/10/18 15:29 Ondansetron HCl (Zofran Inj) 4 mg Q6H PRN IV 06/10/18 15:30 07/10/18 15:29 Ondansetron HCl 8 mg/Dextrose 54 ml @ 200 mls/hr Q6H PRN IV 06/10/18 15:30 07/10/18 15:29 Aspirin (Ecotrin Tab) 81 mg QAM PO 06/11/18 09:00 07/11/18 08:59 06/11/18 07:41 81 MG Metoprolol Tartrate (Lopressor Tab) 25 mg Q12 PO 06/10/18 21:00 07/10/18 20:59 06/11/18 07:40 25 MG Lisinopril (Zestril Tab) 5 mg QAM PO 06/11/18 09:00 07/11/18 08:59 06/11/18 07:41 5 MG Acetaminophen (Tylenol Tab) 650 mg Q4H PRN PO 06/10/18 15:30 07/10/18 15:29 Morphine Sulfate (MoRPHine SULFATE INJ) 2 mg Q5M PRN IV 06/10/18 15:30 06/24/18 15:29 Lorazepam 0.5 mg/ Syringe 1 ml @ 1 mls/min Q6H PRN IV 06/10/18 15:30 07/10/18 15:29 Lorazepam (Ativan Tab) 0.5 mg Q6H PRN PO 06/10/18 15:30 07/10/18 15:29 Atorvastatin Calcium (Lipitor Tab) 80 mg QAM PO 06/11/18 09:00 07/11/18 08:59 06/11/18 07:41 80 MG Ticagrelor (Brilinta Tab) 90 mg BID PO 06/10/18 21:00 07/10/18 20:59 06/11/18 07:40 90 MG Nitroglycerin (Nitroglycerin 2% Oint) 1 inch Q6H EXT 06/10/18 16:30 07/10/18 16:29 06/11/18 04:36 1 INCH Insulin Aspart (novoLOG ASPART) 4 units ACHS SC 06/10/18 21:00 07/10/18 20:59 06/11/18 07:43 8 UNITS Glucose (Glucose 40% Gel) 15-30 GRAMS 15 GRAMS... UD PRN PO 06/10/18 16:30 07/10/18 16:29 Glucose (Glucose Chew Tab) 4-8 Tablets 4 Tabl... UD PRN PO 06/10/18 16:30 07/10/18 16:29 Dextrose (Dextrose 50% 50ML Syringe) 25-50ML 25ML FOR ... UD PRN IV 06/10/18 16:30 07/10/18 16:29 Glucagon (Glucagon Inj) 1 mg UD PRN SQ 06/10/18 16:30 07/10/18 16:29 Carbohydrates (Carbohydrates For Hypoglycemia) 15-30 GRAMS 15 grams if BSG 54-69... UD PRN PO 06/10/18 16:30 07/10/18 16:29 Vital Signs: Date Time Temp Pulse Resp B/P (MAP) Pulse Ox O2 Delivery O2 Flow Rate FiO2 06/11/18 08:01 36.5 75 19 120/74 (89) 96 Room Air 06/11/18 08:00 Room Air 06/11/18 07:00 66 16 127/78 (94) 95 Room Air 06/11/18 06:00 63 14 115/77 (90) 95 Nasal Cannula 2.0 06/11/18 05:00 63 11 121/86 (98) 96 Nasal Cannula 2.0 06/11/18 04:00 36.8 67 17 118/64 (82) 97 Nasal Cannula 2.0 06/11/18 03:00 61 15 126/75 (92) 97 Nasal Cannula 2.0 06/11/18 02:00 63 15 123/69 (87) 95 Nasal Cannula 2.0 06/11/18 01:00 71 15 117/74 (88) 96 Nasal Cannula 2.0 06/11/18 00:01 36.8 79 17 121/54 (76) 97 Nasal Cannula 2.0 06/10/18 23:00 81 23 106/70 (82) 97 Nasal Cannula 2.0 06/10/18 22:00 69 22 119/77 (91) 96 Nasal Cannula 2.0 06/10/18 21:22 80 16 112/75 (87) 97 Nasal Cannula 2.0 06/10/18 20:22 36.9 85 17 122/73 (89) 95 Nasal Cannula 2.0 06/10/18 20:00 97 Nasal Cannula 2.0 06/10/18 19:22 74 17 123/78 (93) 97 06/10/18 17:45 87 18 122/68 (86) 95 06/10/18 17:15 92 23 127/85 (99) 95 06/10/18 16:54 36.8 92 16 148/89 97 Room Air 06/10/18 16:45 97 18 148/89 (108) 95 06/10/18 16:30 93 13 145/88 (107) 96 06/10/18 16:15 83 25 149/100 (116) 94 06/10/18 16:00 36.8 79 15 150/77 (101) 95 06/10/18 15:45 83 19 146/93 (110) 93 06/10/18 15:32 65 16 129/89 (102) 95 Room Air 06/10/18 15:24 65 16 132/90 (104) 95 Room Air 06/10/18 14:09 92 30 99 Room Air 06/10/18 14:04 90 06/10/18 13:48 158/119 06/10/18 13:43 167/122 06/10/18 13:39 88 99 Room Air 06/10/18 13:37 Room Air 06/10/18 13:37 Room Air 06/10/18 13:32 185/144 06/10/18 13:25 156/120 06/10/18 13:24 89 06/10/18 13:09 36.8 94 28 183/123 98 Room Air Laboratory Results: Last 24 Hours Test 06/10/18 13:25 06/10/18 13:29 06/10/18 14:27 06/10/18 15:05 White Blood Count 7.42 K/uL Red Blood Count 4.81 M/uL Hemoglobin 15.9 g/dL Hematocrit 42.9 % Mean Corpuscular Volume 89.2 fL Mean Corpuscular Hemoglobin 33.1 pg Mean Corpuscular Hemoglobin Concent 37.1 g/dl Platelet Count 246 K/uL Mean Platelet Volume 10.9 fL Neutrophils (%) (Auto) 55.7 % Lymphocytes (%) (Auto) 33.8 % Monocytes (%) (Auto) 8.2 % Eosinophils (%) (Auto) 1.5 % Basophils (%) (Auto) 0.7 % Neutrophils # (Auto) 4.13 K/uL Lymphocytes # (Auto) 2.51 K/uL Monocytes # (Auto) 0.61 K/uL Eosinophils # (Auto) 0.11 K/uL Basophils # (Auto) 0.05 K/uL RDW Standard Deviation 40.3 fL RDW Coefficient of Variation 12.7 % Immature Granulocyte % (Auto) 0.1 % Immature Granulocyte # (Auto) 0.01 K/uL Prothrombin Time 10.0 SECONDS Prothromb Time International Ratio 1.0 Activated Partial Thromboplast Time 20.9 SECONDS Partial Thromboplastin Ratio 0.8 Sodium Level 138 mmol/L Potassium Level 3.6 mmol/L Chloride Level 102 mmol/L Carbon Dioxide Level 24 mmol/L Anion Gap 12.0 mmol/L Blood Urea Nitrogen 15 mg/dl Creatinine 1.07 mg/dl Est Creatinine Clear Calc Drug Dose 99.9 ml/min Estimated GFR () 96.7 Estimated GFR (Non- 83.4 BUN/Creatinine Ratio 14.4 Random Glucose 244 mg/dl Estimated Average Glucose 189 mg/dl Hemoglobin A1c 8.2 % Calcium Level 9.7 mg/dl Total Bilirubin 0.6 mg/dl Direct Bilirubin < 0.1 mg/dl Aspartate Amino Transf (AST/SGOT) 19 U/L Alanine Aminotransferase (ALT/SGPT) 30 U/L Alkaline Phosphatase 56 U/L Total Creatine Kinase 182 U/L Creatine Kinase MB 1.9 ng/ml Creatine Kinase MB Ratio 1.0 Total Protein 7.7 gm/dl Albumin 4.3 gm/dl Triglycerides Level 523 mg/dl Cholesterol Level 198 mg/dl HDL Cholesterol 40 mg/dl LDL Cholesterol Direct 106 mg/dl LDL Cholesterol, Calculated mg/dl VLDL Cholesterol, Calculated mg/dl Cholesterol/HDL Ratio 5.0 Lipase 90 U/L Bedside Troponin I 0.080 ng/ml Kaolin Activated Coagulation Time 164 SECONDS 164 SECONDS Test 06/10/18 15:20 06/10/18 16:42 06/10/18 20:53 06/11/18 04:23 Kaolin Activated Coagulation Time 186 SECONDS Bedside Glucose 260 mg/dl 170 mg/dl White Blood Count 11.42 K/uL Red Blood Count 4.24 M/uL Hemoglobin 13.7 g/dL Hematocrit 38.8 % Mean Corpuscular Volume 91.5 fL Mean Corpuscular Hemoglobin 32.3 pg Mean Corpuscular Hemoglobin Concent 35.3 g/dl Platelet Count 214 K/uL Mean Platelet Volume 10.6 fL Neutrophils (%) (Auto) 76.0 % Lymphocytes (%) (Auto) 13.7 % Monocytes (%) (Auto) 8.4 % Eosinophils (%) (Auto) 1.3 % Basophils (%) (Auto) 0.3 % Neutrophils # (Auto) 8.68 K/uL Lymphocytes # (Auto) 1.57 K/uL Monocytes # (Auto) 0.96 K/uL Eosinophils # (Auto) 0.15 K/uL Basophils # (Auto) 0.03 K/uL RDW Standard Deviation 43.2 fL RDW Coefficient of Variation 13.0 % Immature Granulocyte % (Auto) 0.3 % Immature Granulocyte # (Auto) 0.03 K/uL Sodium Level 137 mmol/L Potassium Level 3.8 mmol/L Chloride Level 105 mmol/L Carbon Dioxide Level 25 mmol/L Anion Gap 7.0 mmol/L Blood Urea Nitrogen 12 mg/dl Creatinine 0.87 mg/dl Est Creatinine Clear Calc Drug Dose 120.8 ml/min Estimated GFR () 120.8 Estimated GFR (Non- 104.2 BUN/Creatinine Ratio 14.2 Random Glucose 162 mg/dl Calcium Level 7.8 mg/dl Troponin I 13.600 ng/ml Test 06/11/18 07:20 Bedside Glucose 195 mg/dl
--- NOTE | 2018-06-11 12:43 | PROGRESS NOTE ---
DATE: 06/11/2018 The patient seen and examined. Chart, medications, telemetry reviewed. SUBJECTIVE: The patient has had no further chest pains overnight. Overall, feels well. Notes no pleuritic pain. Notes no tachy-palpitations. Notes no syncope or near syncope. Notes no bleeding issues. Right radial puncture sites healing well. OBJECTIVE: VITAL SIGNS: Heart rate is 80, blood pressure is 119/82. HEENT: Normocephalic, atraumatic. NECK: Thick. There is no distinct jugular venous distention. There are no carotid bruits. LUNGS: Clear to auscultation. CARDIOVASCULAR: Regular with normal S1, S2. There is no murmur or rub. PMI is nondisplaced. ABDOMEN: Soft, nontender. EXTREMITIES: Without cyanosis or clubbing. There is no peripheral edema. As noted, right radial site is healing well. LABORATORY DATA: Echocardiogram this morning demonstrates mild left ventricular hypertrophy with preserved LV systolic function, EF 60-65%. There is an abnormal relaxation pattern into the septum and apex. There is no significant valvular disease. Sodium is 137, potassium is 3.8, chloride is 105, bicarbonate is 25, BUN is 12, creatinine is 0.87. IMPRESSION: The patient is a 43-year-old male admitted with acute posterolateral myocardial infarction, undergoing emergent cardiac catheterization with intervention of the ostial posterolateral branch with drug-eluting stent. Distal posterior circumflex was unable to be opened with small vessel disease, right coronary artery moderate narrowing of 50% in the mid vessel, no other obstruction. PLAN: Continue post-SC monitoring for an additional 24 hours. Can likely completion of the distal posterolateral infarct, repeat EKG be ordered in a.m., beta estrella be titrated upward. The patient has been begun on guideline based therapies with dual antiplatelet therapy, lisinopril and high-dose atorvastatin. Underlying cardiac risk factors will need to be addressed, carries a history of obstructive sleep apnea and untreated diabetes mellitus.
--- NOTE | 2018-06-11 16:56 | Progress Note ---
Progress Note Date of Service Jun 11, 2018. Progress Note Subjective Patient denies chest pain or shortness of breath or abdominal discomfort Physical Exam General: no acute distress Lungs: cleat to auscultation bilaterally, no wheezing Heart: regular rate Abdomen: soft, nontender, bowel sounds present Extremities: moves extremities, no calf tenderness Assessment and Plan Acute inferior wall Myocardial Infarction -06/10/18 cardiac catheterization with intervention of the ostial posterolateral branch with drug-eluting stent. Distal posterior circumflex was unable to be opened with small vessel disease, right coronary artery moderate narrowing of 50% in the mid vessel, no other obstruction. - dual antiplatelet therapy with aspirin and Brillenta, lisinopril and high- dose atorvastatin, beta estrella -Continue post-RI monitoring today as per cardiology recommendations Hyperlipidemia -Lipid panel with with triglycerides of over 500 and total cholesterol 198 -statin Diabetes Mellitus type II -hbA1c 8.2 -sliding scale insulin while inpatient -will likely need to be started on metformin upon discharge -patient plans to discuss with primary acre doctor after discharge whether insulin therapy needed as outpatient History of obstructive sleep apnea -patient reports he could not tolerate CPAP in the past -can try CPAP while in the hospital Tobacco use -used chewing tobacco -counseled patient that chewing tobacco places him at risk for oral cancer -will need nicotine patches upon discharge If no further events during hospital stay, then patient likely will be discharged tomorrow He has appointment for primary care doctor on 06/13/2018 1:10 PM Carlos Rider MD Family Practice [facility] (will also need cardiology clinic follow up)
[2018-06-11] MEDS ORDERED: NURSING VERBAL MED ORDER ONE (17:00)
[2018-06-12 03:50] VITALS: BP 102/63; PULSE 69; TEMP 37; O2SAT 96
[2018-06-12] MEDS: METOPROLOL TARTRATE 25 MG TAB PO SCH (06:15)
[2018-06-12] MEDS: ASPIRIN 81 MG ECTAB PO SCH (07:27)
[2018-06-12] MEDS: TICAGRELOR 90 MG TAB PO SCH (07:28)
[2018-06-12] MEDS: LISINOPRIL 5 MG TAB PO SCH (07:28)
[2018-06-12] MEDS: ATORVASTATIN 40 MG TAB PO SCH (07:28)
[2018-06-12 08:13] VITALS: BP 103/60; PULSE 73; TEMP 36.5; O2SAT 96
[2018-06-12] MEDS: INSULIN ASPART 100 UNITS/ML 3 ML PEN SC SCH ×2 (08:13→12:58)
[2018-06-12] MEDS ORDERED: BRL90 PO (11:25)
[2018-06-12] MEDS ORDERED: METO50TA16 PO (11:28)
[2018-06-12] MEDS ORDERED: LISI-730 PO (11:28)
[2018-06-12] MEDS ORDERED: ASPI-461 PO (11:28)
[2018-06-12] MEDS ORDERED: GLC500 OR (11:28)
[2018-06-12] MEDS ORDERED: NTRSLP4 SL (11:28)
[2018-06-12] MEDS ORDERED: LPT40 PO (11:28)
--- NOTE | 2018-06-12 11:38 | Progress Note ---
Internal Med Progress Note Date of Service: Jun 12, 2018. Provider Documentation: Subjective Patient denies chest pain or shortness of breath or abdominal discomfort Physical Exam General: no acute distress Eyes: EOMI Neck: no JVD Lungs: clear to auscultation bilaterally, no wheezing Heart: regular rate, no murmur Abdomen: soft, nontender, bowel sounds present Extremities: moves extremities, no calf tenderness ASSESSMENT & PLAN: Hospital Course and Plans Acute inferior wall Myocardial Infarction (ST Elevation Myocardial Infarction) -06/10/18 cardiac catheterization with intervention of the ostial posterolateral branch with drug-eluting stent. Distal posterior circumflex was unable to be opened with small vessel disease, right coronary artery moderate narrowing of 50% in the mid vessel, no other obstruction. - dual antiplatelet therapy with aspirin 81 mg daily and BRILINTA (ticagrelor), lisinopril daily, and high-dose atorvastatin 80 mg daily, Metoprolol Tartrate 50 mg BID Hyperlipidemia -Lipid panel with with triglycerides of over 500 and total cholesterol 198 -high-dose atorvastatin 80 mg daily Diabetes Mellitus type II -hbA1c 8.2 -sliding scale insulin while inpatient -discharge on metformin 500 mg daily -patient plans to discuss with primary care doctor after discharge whether insulin therapy needed as outpatient History of obstructive sleep apnea -patient reports he could not tolerate CPAP in the past -CPAP was ordered for use as inpatient -will need to discuss with primary care doctor on further CPAP use as outpatient Tobacco use -used chewing tobacco -counseled patient that chewing tobacco places him at risk for oral cancer -discharge medication with nicotine patch Discharge Instructions Prescriptions were sent electronically to [address] [place] [address] 06/13/2018 1:10 PM Carlos Rider MD Family Practice [facility] (will need to discuss with primary care doctor on further CPAP use as outpatient , whether insulin therapy needed as outpatient) 06/29/2018 9:00 AM Bi Ball Jr., DO Cardiology, [facility] Vital Signs: Date Time Temp Pulse Resp B/P (MAP) Pulse Ox O2 Delivery O2 Flow Rate FiO2 06/12/18 11:51 36.5 68 18 123/82 (96) 96 Room Air 06/12/18 08:13 36.5 73 18 103/60 (74) 96 Room Air 06/12/18 07:45 Room Air 06/12/18 03:50 37.0 69 20 102/63 (76) 96 Room Air 06/11/18 22:59 37.3 80 18 108/63 (78) 95 Room Air 06/11/18 20:00 Room Air 06/11/18 19:32 37.5 89 18 121/71 (88) 94 Room Air 06/11/18 16:00 Room Air 06/11/18 15:19 37.1 82 18 114/65 (81) 93 Room Air 06/11/18 14:09 36.5 85 21 96 06/11/18 14:01 85 21 129/69 (89) 96 06/11/18 13:01 92 16 115/68 (84) 96 Lab Results: Results Past 24 Hours Test 06/11/18 12:31 06/11/18 17:37 06/11/18 20:25 06/12/18 07:26 Range/Units Troponin I 9.230 0-0.045 ng/ml Thyroid Stimulating Hormone (TSH) 1.720 0.300-4.500 uIu/ml Bedside Glucose 274 159 189 70-99 mg/dl Test 06/12/18 11:22 Range/Units Bedside Glucose 174 70-99 mg/dl
[2018-06-12] MEDS ORDERED: NICO7DIS7 TD (11:42)
--- NOTE | 2018-06-12 11:46 | PROGRESS NOTE ---
DATE: 06/12/2018 The patient seen and examined. Chart, medications, telemetry reviewed. SUBJECTIVE: The patient has had no chest pain or discomfort overnight. He has been ambulatory, has had no tachypalpitations, dizziness, lightheadedness. Has undergone instruction on medications and diabetic management. OBJECTIVE: VITAL SIGNS: Heart rate is 73. Blood pressure is 103/60. NECK: Thin. There is no jugular venous distention. There are no carotid bruits. LUNGS: Clear to auscultation. CARDIOVASCULAR: Regular with normal S1, S2. There is no murmur, gallop, or rub. ABDOMEN: Soft, nontender. EXTREMITIES: Without cyanosis or clubbing. There is no peripheral edema. NEUROLOGIC: The patient is alert, answering questions appropriately. DATA: Electrocardiogram today demonstrates sinus rhythm with inferior infarct, no acute ST elevation or evolution. IMPRESSION: A 43-year-old male presented with acute posterolateral myocardial infarction, undergoing emergent cardiac catheterization demonstrating occlusion of a circumflex posterolateral branch with successful drug-eluting stent implantation, persistent occlusion of distal left circumflex, moderate irregularities of the right coronary artery. The patient has been asymptomatic. He is on appropriate medical therapies. Discussed all in detail with the patient. Issues are as noted acute coronary event ST elevation myocardial infarction. The patient should be to discharged on dual antiplatelet therapy, is currently on aspirin and Brilinta. Would continue with a planned uninterruption of dual antiplatelet therapy for 1 year. Appropriate cardiac medications have been added with metoprolol. This will be changed to 50 mg twice per day to aid in management and ease in usage. Additional medications with appropriate guideline based regimen includes lisinopril and high-dose atorvastatin. Would recommend these on discharge as well as referral for cardiac rehabilitation. Risk factor modification discussed including diabetic teaching and tobacco cessation. Arrangements were made for him followup to follow up with Dr. Shepard/[facility] cardiology in 3-4 weeks' time. He has a followup appointment with primary care physician day after discharge.
[2018-06-12 11:51] VITALS: BP 123/82; PULSE 68; TEMP 36.5; O2SAT 96
--- NOTE | 2018-06-12 12:23 | Discharge Instructions ---
Discharge Instructions Date of Service Jun 12, 2018. Admission Reason for Admission: Chest Pain Discharge Discharge Diagnosis / Problem: Myocardial Infarction with drug eluting stent, Diabetes, Hyperlipidemia Discharge Goals Goal(s): Improve disease control Activity Recommendations Activity Limitations: per Instructions/Follow-up section . Instructions / Follow-Up Instructions / Follow-Up Hospital Course and Plans Acute inferior wall Myocardial Infarction (ST Elevation Myocardial Infarction) -06/10/18 cardiac catheterization with intervention of the ostial posterolateral branch with drug-eluting stent. Distal posterior circumflex was unable to be opened with small vessel disease, right coronary artery moderate narrowing of 50% in the mid vessel, no other obstruction. - dual antiplatelet therapy with aspirin 81 mg daily and BRILINTA (ticagrelor), lisinopril daily, and high-dose atorvastatin 80 mg daily, Metoprolol Tartrate 50 mg BID Hyperlipidemia -Lipid panel with with triglycerides of over 500 and total cholesterol 198 -high-dose atorvastatin 80 mg daily Diabetes Mellitus type II -hbA1c 8.2 -sliding scale insulin while inpatient -discharge on metformin 500 mg daily -patient plans to discuss with primary care doctor after discharge whether insulin therapy needed as outpatient History of obstructive sleep apnea -patient reports he could not tolerate CPAP in the past -CPAP was ordered for use as inpatient -will need to discuss with primary care doctor on further CPAP use as outpatient Tobacco use -used chewing tobacco -counseled patient that chewing tobacco places him at risk for oral cancer -discharge medication with nicotine patch Discharge Instructions Prescriptions were sent electronically to [address] [place] [address] 06/13/2018 1:10 PM Carlos Rider MD Family Practice [facility] (will need to discuss with primary care doctor on further CPAP use as outpatient , whether insulin therapy needed as outpatient) 06/29/2018 9:00 AM Bi Ball Jr., DO Cardiology, [facility] Current Hospital Diet Patient's current hospital diet: AHA Diet (Heart Healthy), Diabetes Type 2 Diet Discharge Diet Recommended Diet: AHA Diet (Heart Healthy), Diabetes Type 2 Diet Pending Studies Studies pending at discharge: no Laboratory Results 06/11/18 04:23 Red Blood Count 4.24, Mean Corpuscular Volume 91.5, Mean Corpuscular Hemoglobin 32.3, Mean Corpuscular Hemoglobin Concent 35.3, Mean Platelet Volume 10.6, Neutrophils (%) (Auto) 76.0, Lymphocytes (%) (Auto) 13.7, Monocytes (%) (Auto) 8.4, Eosinophils (%) (Auto) 1.3, Basophils (%) (Auto) 0.3, Neutrophils # (Auto) 8.68, Lymphocytes # (Auto) 1.57, Monocytes # (Auto) 0.96, Eosinophils # (Auto) 0.15, Basophils # (Auto) 0.03 06/11/18 04:23 Test 06/10/18 13:25 06/10/18 13:29 06/10/18 15:20 06/11/18 04:23 Prothrombin Time 10.0 SECONDS (9.0-12.0) Prothromb Time International Ratio 1.0 (0.9-1.1) Activated Partial Thromboplast Time 20.9 SECONDS (21.0-31.0) Partial Thromboplastin Ratio 0.8 Estimated Average Glucose 189 mg/dl Hemoglobin A1c 8.2 % (4.5-5.6) Total Bilirubin 0.6 mg/dl (0.2-1) Direct Bilirubin < 0.1 mg/dl (0-0.2) Aspartate Amino Transf (AST/SGOT) 19 U/L (15-37) Alanine Aminotransferase (ALT/SGPT) 30 U/L (12-78) Alkaline Phosphatase 56 U/L (45-117) Total Creatine Kinase 182 U/L (39-308) Creatine Kinase MB 1.9 ng/ml (0.5-3.6) Creatine Kinase MB Ratio 1.0 (0-3.0) Total Protein 7.7 gm/dl (6.4-8.2) Albumin 4.3 gm/dl (3.4-5.0) Triglycerides Level 523 mg/dl (0-150) Cholesterol Level 198 mg/dl (0-200) HDL Cholesterol 40 mg/dl LDL Cholesterol Direct 106 mg/dl LDL Cholesterol, Calculated mg/dl VLDL Cholesterol, Calculated mg/dl Cholesterol/HDL Ratio 5.0 Lipase 90 U/L (73-393) Bedside Troponin I 0.080 ng/ml (0-0.045) Kaolin Activated Coagulation Time 186 SECONDS (94-140) White Blood Count 11.42 K/uL (4.8-10.8) Red Blood Count 4.24 M/uL (4.7-6.1) Hemoglobin 13.7 g/dL (14.0-18.0) Hematocrit 38.8 % (42-52) Mean Corpuscular Volume 91.5 fL (80-100) Mean Corpuscular Hemoglobin 32.3 pg (25-34) Mean Corpuscular Hemoglobin Concent 35.3 g/dl (32-36) Platelet Count 214 K/uL (130-400) Mean Platelet Volume 10.6 fL (7.4-10.4) Neutrophils (%) (Auto) 76.0 % Lymphocytes (%) (Auto) 13.7 % Monocytes (%) (Auto) 8.4 % Eosinophils (%) (Auto) 1.3 % Basophils (%) (Auto) 0.3 % Neutrophils # (Auto) 8.68 K/uL (1.4-6.5) Lymphocytes # (Auto) 1.57 K/uL (1.2-3.4) Monocytes # (Auto) 0.96 K/uL (0.11-0.59) Eosinophils # (Auto) 0.15 K/uL (0-0.5) Basophils # (Auto) 0.03 K/uL (0-0.2) RDW Standard Deviation 43.2 fL (36.4-46.3) RDW Coefficient of Variation 13.0 % (11.5-14.5) Immature Granulocyte % (Auto) 0.3 % Immature Granulocyte # (Auto) 0.03 K/uL (0.00-0.02) Anion Gap 7.0 mmol/L (3-11) Est Creatinine Clear Calc Drug Dose 120.8 ml/min Estimated GFR () 120.8 Estimated GFR (Non- 104.2 BUN/Creatinine Ratio 14.2 (10-20) Calcium Level 7.8 mg/dl (8.5-10.1) Test 06/11/18 12:31 06/12/18 11:22 Troponin I 9.230 ng/ml (0-0.045) Thyroid Stimulating Hormone (TSH) 1.720 uIu/ml (0.300-4.500) Bedside Glucose 174 mg/dl (70-99) Date/Time Source Procedure Growth Status 06/10/18 00:00 Nasal MRSA DNA Surveillance Screen - Final Specimen Negative for MRSA by DNA Probe Complete Hemoglobin A1c Test 06/10/18 13:25 Range/Units Estimated Average Glucose 189 mg/dl Hemoglobin A1c 8.2 H 4.5-5.6 % Lipid Panel Test 06/10/18 13:25 Range/Units Triglycerides Level 523 H 0-150 mg/dl Cholesterol Level 198 0-200 mg/dl HDL Cholesterol 40 mg/dl LDL Cholesterol Direct 106 mg/dl Cholesterol/HDL Ratio 5.0 LDL Cholesterol, Calculated mg/dl Medical Emergencies . Who to Call and When: Medical Emergencies: If at any time you feel your situation is an emergency, please call 911 immediately. . Non-Emergent Contact Non-Emergency issues call your: Primary Care Provider, Senior Market Intelligence Consultant Call Non-Emergent contact if: you have any medication questions . . "Provider Documentation" section prepared by Jose Hernandez. .
--- NOTE | 2018-06-12 12:26 | Discharge Summary ---
Discharge Summary Date of Service Jun 12, 2018. Discharge Summary Admission Date: Jun 10, 2018 at 15:37 Discharge Date: Jun 12, 2018 Discharge Disposition: Home Principal Diagnosis: Hospital Course and Plans Acute inferior wall Myocardial Infarction (ST Elevation Myocardial Infarction) cardiac catheterization with intervention of the ostial posterolateral branch with drug-eluting stent Hyperlipidemia Diabetes Mellitus type II Secondary Diagnoses/Problems: History of obstructive sleep apnea Tobacco use disorder Medication Reconciliation New Medications: Metformin HCl (Metformin HCl) 500 Mg Tab 1 TAB OR DAILY for 30 Days, #30 TAB Nicotine (Nicoderm Cq 7 Mg Patch) 7 Mg/24 Hr Dis 7 MG TD DAILY for 30 Days, #30 PATCH Aspirin (Aspirin) 81 Mg Tab 81 MG PO QAM for 30 Days, #30 TAB Atorvastatin (Lipitor) 40 Mg Tab 80 MG PO QAM for 30 Days, #60 TAB Lisinopril (Lisinopril) 5 Mg Tab 5 MG PO QAM for 30 Days, #30 TAB Metoprolol Tartrate (Lopressor) (Lopressor) 50 Mg Tab 50 MG PO BID for 30 Days, #60 TAB Nitroglycerin (Nitrostat) 0.4 Mg/1 Tab Subl 0.4 MG SL UD PRN for Chest Pain for 30 Days, #30 TAB take only if chest pain Ticagrelor (Brilinta) 90 Mg Tab 90 MG PO BID for 30 Days, #60 TAB Continued Medications: Hydrocodone/Acetaminophen 5MG/325MG ([place] 5MG/325MG) Tab 1-2 TABLETS PO Q6 PRN for Pain, TAB PRN PAIN Admission Information HPI (per Admitting provider): Patient is a 43-year-old male with a PMH of DM II and tobacco use who presented earlier today after abrupt onset of chest pain at 1 PM. Patient was riding in the car when he experienced sudden, midsternal chest pain with radiation down left arm. Associated symptoms included shortness of breath, nausea and diaphoresis. Heart alert was called in the ED for inferior lead ST elevation and POC troponin was elevated to 0.08. Patient was taken to [facility] where Dr. Grider placed a stent in the left circumflex artery. Patient is recovering well in the ICU. Chest discomfort is a 3/10. Denies any lightheadedness, headache, visual changes, palpitations, shortness of breath, abdominal pain, nausea, vomiting or LE swelling. Chews tobacco daily. Was diagnosed with type 2 diabetes in the past and was on metformin and insulin but stopped taking medication after losing weight. Last hemoglobin A1c was 6.9 in 2015. No personal history of heart disease. Family history of heart disease ( grandfather). Denies history of hypertension or hyperlipidemia. Physical Exam (per Admitting): General Appearance: WD/WN, no apparent distress Head: normocephalic, atraumatic Eyes: normal inspection, PERRL, sclerae normal ENT: normal ENT inspection, hearing grossly normal, pharynx normal Neck: supple, thyroid normal, trachea midline Respiratory/Chest: chest non-tender, lungs clear, normal breath sounds, no respiratory distress, no accessory muscle use Cardiovascular: regular rate, rhythm, no murmur, normal peripheral pulses Abdomen/GI: non tender, soft, no organomegaly Extremities/Musculoskelatal: normal inspection, no calf tenderness, no pedal edema, + pertinent finding (R wrist access point clean, dry. No active bleeding) Neurologic/Psych: no motor/sensory deficits, alert, normal mood/affect, oriented x 3 Skin: normal color, warm/dry Hospital Course Hospital Course and Plans Acute inferior wall Myocardial Infarction (ST Elevation Myocardial Infarction) -06/10/18 cardiac catheterization with intervention of the ostial posterolateral branch with drug-eluting stent. Distal posterior circumflex was unable to be opened with small vessel disease, right coronary artery moderate narrowing of 50% in the mid vessel, no other obstruction. - dual antiplatelet therapy with aspirin 81 mg daily and BRILINTA (ticagrelor), lisinopril daily, and high-dose atorvastatin 80 mg daily, Metoprolol Tartrate 50 mg BID Hyperlipidemia -Lipid panel with with triglycerides of over 500 and total cholesterol 198 -high-dose atorvastatin 80 mg daily Diabetes Mellitus type II -hbA1c 8.2 -sliding scale insulin while inpatient -discharge on metformin 500 mg daily -patient plans to discuss with primary care doctor after discharge whether insulin therapy needed as outpatient History of obstructive sleep apnea -patient reports he could not tolerate CPAP in the past -CPAP was ordered for use as inpatient -will need to discuss with primary care doctor on further CPAP use as outpatient Tobacco use -used chewing tobacco -counseled patient that chewing tobacco places him at risk for oral cancer -discharge medication with nicotine patch Discharge Instructions Prescriptions were sent electronically to [address] [id number] 06/13/2018 1:10 PM Carlos Rider MD Family Practice [facility] (will need to discuss with primary care doctor on further CPAP use as outpatient , whether insulin therapy needed as outpatient) 06/29/2018 9:00 AM Bi Ball Jr., DO Cardiology, [facility] Total time spent on discharge = 40 minutes This includes examination of the patient, discharge planning, medication reconciliation, and communication with other providers. Discharge Instructions see above
[2018-06-12 12:27] VITALS: BP 123/82; PULSE 68; TEMP 36.5; O2SAT 96
[2018-06-12] MEDS ORDERED: METOPROLOL TARTRATE 50 MG TAB PO SCH (21:00)
== END 2018-06-12 13:05 | disposition home or self-care (01) | DRG 247 ==
LOC: C.EDB 13:10 → ENRESERV 14:29 → C.MSICU 15:37 → ENRESERV 06-11 13:34 → C.2T 06-11 14:14
PROVIDERS: ADMIT Internal Medicine Cardiovascular Disease; ATTEND Hospitalist
PROC: 4A023N7 Measurement of Cardiac Sampling and Pressure, Left Heart, Percutaneous Approach (ICD-10-PCS; principal; 2018-06-10 14:12)
PROC: B211YZZ Fluoroscopy of Multiple Coronary Arteries using Other Contrast (ICD-10-PCS; principal; 2018-06-10 14:12)
PROC: 027034Z Dilation of Coronary Artery, One Artery with Drug-eluting Intraluminal Device, Percutaneous Approach (ICD-10-PCS; principal; 2018-06-10 14:12)
DX: I21.29 ST elevation (STEMI) myocardial infarction involving other sites (principal); E11.9 Type 2 diabetes mellitus without complications; E78.5 Hyperlipidemia, unspecified; I10 Essential (primary) hypertension; G47.33 Obstructive sleep apnea (adult) (pediatric); E66.01 Morbid (severe) obesity due to excess calories; F17.220 Nicotine dependence, chewing tobacco, uncomplicated; Z88.0 Allergy status to penicillin; Z68.37 Body mass index [BMI] 37.0-37.9, adult

== ENCOUNTER 2019-05-17 21:00 | Inpatient (IN) ==
--- OUTSIDE RECORDS SUMMARY | 2019-05-17 21:03 | External Medical Summary | Continuity of Care Document ---
:1975 Author Name Ashwin Murguia Address Unavailable Unavailable , Care Team Providers Name Role Phone Kamla Webber M.D. Unavailable [email or web address] Marquis Rider Unavailable Unavailable Assessments Assessed Problems:Umbilical hernia Problems Umbilical hernia (553.1) (K42.9) High triglycerides (272.1) (E78.1) Diabetes (250.00) (E11.9) Sleep apnea (780.57) (G47.30) Allergies and Adverse Reactions Penicillins (Allergy) Medications No Reported Medications Refills: 0 Procedures History of Umbilical Hernia Repair Statu s: Completed Immunizations Immunizations not documented Family History Mother No pertinent family history (V49.89) (Z78.9) Status: Active Father No pertinent family history (V49.89) (Z78.9) Status: Active Social History - Smoking Status Never smoker Plan of Treatment Planned Observations Planned Goals not documented Results No Known Results Results not documented Encounters Appointment; Ryan Webber M.D. 11-Jun-2015 13:10 Encounter Diagnosis: Problem not documented
[2019-05-17] MEDS ORDERED: ASPIRIN CHEW 324 MG PO STA (21:11)
[2019-05-17] MEDS ORDERED: ASPIRIN CHEW 324 MG ONE (21:12)
[2019-05-17] MEDS ORDERED: NITROGLYCERIN SL 0.4 MG/TAB TAB ONE (21:23)
--- NOTE | 2019-05-17 21:27 | XRay Report ---
SINGLE VIEW CHEST CLINICAL HISTORY: Atypical chest pain. FINDINGS: An AP, portable, upright chest radiograph is compared to study dated 11/21/2018. The cardiom ediastinal silhouette is unremarkable. The lungs and pleural spaces are clear. No pneumothorax is see n. The bony thorax is grossly intact. IMPRESSION: No active disease in the chest. Electronically signed by: Elroy Mejia M.D. 05/17/2019 9:25 PM
[2019-05-17] MEDS: NITROGLYCERIN SL 0.4 MG/TAB TAB SL PRN ×2 (21:31→21:38)
[2019-05-17 21:34] LABS: Basophils # (auto) 0.03 K/uL (0-0.2); Basophils % (auto) 0.4 %; Eosinophils % (auto) 2.5 %; Hematocrit (blood only) 41.5 % (42-52); Hemoglobin 15.1 g/dL (14.0-18.0); Immature Granulocytes # (auto) 0.01 K/uL (0.00-0.02); Immature Granulocytes % (auto) 0.1 %; Lymphocytes % (auto) 36.9 %; Mean Corpuscular Hgb Conc 36.4 g/dL (32-36); Mean Corpuscular Volume 89.8 fL (80-100); Mean Platelet Volume 10.7 fL (7.4-10.4); Monocytes # (auto) 0.79 K/uL (0.11-0.59); Monocytes % (auto) 10.1 %; Neutrophils # (auto) 3.93 K/uL (1.4-6.5); Platelet Count 226 K/uL (130-400); RDW Coefficient of Variation 12.8 % (11.5-14.5); RDW Standard Deviation 41.8 fL (36.4-46.3); Red Blood Count 4.62 M/uL (4.7-6.1); White Blood Count 7.86 K/uL (4.8-10.8)
[2019-05-17] MEDS ORDERED: MoRPHine SULFATE 4 MG/ML 1 ML CARP\\VIAL IV STA (21:43)
[2019-05-17 21:44] LABS: Partial Thromboplastin Ratio 0.8; Partial Thromboplastin Time 22.8 Seconds (21.0-31.0); Prothrombin Time 10.4 Seconds (9.0-12.0)
[2019-05-17 21:51] LABS: BUN Creatinine Ratio 12.6 (10-20); Calcium 9.2 mg/dl (8.5-10.1); Creatinine Clr Calc Pharmacy 96.4 ml/min; Est GFR (African American) 94.9; Est GFR (Non-African American) 81.9; Potassium 3.7 mmol/L (3.5-5.1)
[2019-05-17 21:53] LABS: Albumin Globulin Ratio 1.3 (0.9-2); Bilirubin,Total 0.7 mg/dl (0.2-1); Globulin 3.1 gm/dl (2.5-4.0); Total Protein 7.1 gm/dl (6.4-8.2)
--- NOTE | 2019-05-17 22:09 | Emergency Department Note ---
Entered by Meghna Mac acting as a scribe for History of Present Illness General Chief complaint: Chest Pain Stated complaint: POSSIBLE HEART ATTACK Time Seen by Provider: 05/17/19 21:13 Source: patient History of Present Illness Provider complaint: chest pain Onset (ago): hour(s) less than 1 Location: chest Pain Consistency: + constant Maximum Pain Intensity: 8 Relieved By: + none Associated symptoms: + denies other symptoms, + shortness of breath and + other (left arm pain) Treatments prior to arrival: other (nitroglycerin) The patient is a 44 y/o male who presents to the emergency department for evaluation of constant chest pain that began prior to arrival. The patient states that he was watching TV when he began having chest pain in the center of the chest, left arm pain and shortness of breath. The patient reports he had a heart attack last June and this feels similar to that episode. Since the previous heart attack the patient notes a stent was put in place. The patient states he takes aspirin daily, blood pressure medications, brilinta, metformin, and he also took nitroglycerin prior to arrival. The patient denies any other symptoms. Home Medications Home Medications Medication Instructions Recorded Confirmed Type aspirin 81 mg PO QAM 11/21/18 05/17/19 History lisinopril 5 mg PO HS 11/21/18 05/17/19 History metformin 1,000 mg PO BID 11/21/18 05/17/19 History metoprolol tartrate 50 mg PO BID 11/21/18 05/17/19 History nitroglycerin [Nitrostat] 0.4 mg SUBLINGUAL DIRECTED PRN 11/21/18 05/17/19 History ticagrelor [Brilinta] 90 mg PO BID 11/21/18 05/17/19 History atorvastatin 40 mg PO QAM 05/17/19 05/17/19 History Allergies Allergy/AdvReac Type Severity Reaction Status Date / Time Penicillins Allergy Unknown Unknown Unverified 05/17/19 22:21 Past Med/Surg History Medical History Obstructive sleep apnea (Chronic) Acute myocardial infarction (Resolved) CAD (coronary artery disease) (Chronic) "s/p stent to left circumflex 06/10/18" Diabetes mellitus, type II (Chronic) Tobacco use disorder (Chronic) Surgical History H/O hernia repair (Resolved) Social History Preferred Language: Ukrainian Communication Ability: Effective Visual Impairment: No Limitations Hearing Ability: Normal marital status: Current Living Situation: Spouse Feels Safe at Home: Yes Smoking Status: Never smoker Review of Systems See HPI for pertinent positives & negatives. and A total of 10 systems reviewed and were otherwise negative Physical Exam Vital Signs Vital Signs - 24 hr 05/17/19 21:01 05/17/19 21:11 05/17/19 21:19 Temperature 36.5 C Temperature Source Oral Sepsis Recent Fever Within 48 Hours No Sepsis New/Unexplained Change in Mental Status No Sepsis Action Taken by Nursing No Action Required Pulse Rate 99 H 82 80 Pulse Rate from SpO2 Sensor 83 80 Respiratory Rate 26 H 49 H 52 H Blood Pressure 170/106 H 174/97 H Blood Pressure Mean 127 122 Pulse Oximetry 99 98 96 Oxygen Delivery Method Room Air 05/17/19 21:20 05/17/19 21:25 05/17/19 21:30 Temperature Temperature Source Sepsis Recent Fever Within 48 Hours Sepsis New/Unexplained Change in Mental Status Sepsis Action Taken by Nursing Pulse Rate 77 98 H Pulse Rate from SpO2 Sensor 77 99 H Respiratory Rate 50 H 31 H Blood Pressure 158/97 H Blood Pressure Mean 117 Pulse Oximetry 98 94 94 Oxygen Delivery Method Room Air 05/17/19 21:31 05/17/19 21:38 05/17/19 21:40 Temperature Temperature Source Sepsis Recent Fever Within 48 Hours Sepsis New/Unexplained Change in Mental Status Sepsis Action Taken by Nursing Pulse Rate 95 H 98 H 95 H Pulse Rate from SpO2 Sensor 93 H 95 H 93 H Respiratory Rate 41 H 27 H 44 H Blood Pressure 137/97 140/83 Blood Pressure Mean 110 102 Pulse Oximetry 94 95 96 Oxygen Delivery Method Room Air 05/17/19 21:50 05/17/19 22:00 05/17/19 22:10 Temperature Temperature Source Sepsis Recent Fever Within 48 Hours Sepsis New/Unexplained Change in Mental Status Sepsis Action Taken by Nursing Pulse Rate 92 H 85 80 Pulse Rate from SpO2 Sensor 91 H 83 80 Respiratory Rate 20 22 20 Blood Pressure 139/93 142/95 H 129/87 Blood Pressure Mean 108 110 101 Pulse Oximetry 94 94 95 Oxygen Delivery Method Room Air Room Air Room Air 05/17/19 22:20 05/17/19 22:30 Temperature Temperature Source Sepsis Recent Fever Within 48 Hours Sepsis New/Unexplained Change in Mental Status Sepsis Action Taken by Nursing Pulse Rate 86 76 Pulse Rate from SpO2 Sensor 85 75 Respiratory Rate 27 H 18 Blood Pressure 137/92 115/80 Blood Pressure Mean 107 91 Pulse Oximetry 95 96 Oxygen Delivery Method Room Air Room Air CONSTITUTIONAL/VITAL SIGNS: Reviewed / noted above. GENERAL: Non-toxic in appearance. INTEGUMENTARY: Warm, dry, and [place]. HEAD: Normocephalic. EYES: without scleral icterus or trauma. ENT/OROPHARYNX: clear and moist. LYMPHADENOPATHY/NECK: Is supple without lymphadenopathy or meningismus. RESPIRATORY: Lungs clear and equal. CARDIOVASCULAR: Regular rate and rhythm. GI/ABDOMEN: Soft and nontender. No organomegaly or pulsatile mass. No rebound or guarding. Normal bowel sounds. EXTREMITIES: Warm and well perfused. BACK: No CVA tenderness. NEUROLOGICAL: Intact without focal deficits. PSYCHIATRIC: normal affect. MUSCULOSKELETAL: Normally developed with good muscle tone. Course 2113: Past medical records reviewed. The patient was evaluated in room B10. A complete history and physical exam was performed. 2129: I consulted Dr. Verito SALTER Cardiology. 5: I spoke with Dr. Alba Mustafa Hospitalist. He will evaluate for further management. Consultations Consultation #1: I consulted Dr. Verito SALTER Cardiology. Time: 21:30 Consultation #2: I spoke with Dr. Alba Mustafa Hospitalannita. He will evaluate for further management. Time: 23:25 Administered Medications Nitroglycerin (Nitrostat) 0.4 mg SL PRN PRN PRN Reason: Chest Pain Stop: 06/16/19 21:27 Last Admin: 05/17/19 21:38 Dose: 0.4 mg Documented by: [id number] Admin: 05/17/19 21:31 Dose: 0.4 mg Documented by: [id number] Discontinued Medications Aspirin (Aspirin) 324 mg PO NOW STA Stop: 05/17/19 21:12 Last Admin: 05/17/19 21:15 Dose: 243 mg Documented by: [id number] Aspirin (Aspirin) Confirm Administered Dose 324 mg .ROUTE .STK-MED ONE Stop: 05/17/19 21:13 Last Admin: 05/17/19 21:15 Dose: Not Given Documented by: [id number] Morphine Sulfate (Morphine Sulfate) 4 mg IV NOW STA Stop: 05/17/19 21:44 Last Admin: 05/17/19 21:53 Dose: 4 mg Documented by: [id number] Nitroglycerin (Nitrostat) Confirm Administered Dose 0.4 mg .ROUTE .STK-MED ONE Stop: 05/17/19 21:24 Last Admin: 05/17/19 21:24 Dose: 0.4 mg Documented by: [id number] Medical Decision Making Differential Diagnosis the differential was considered includes acute myocardial infarction, acute coronary syndrome, myocarditis, pericarditis, pericardial effusions /tamponad, esophageal perforation, thoracic aortic dissection, pulmonary embolism, pneumonia, pneumothorax, pancreatitis, shingles, acute cholecystitis, perforated abdominal viscus. Medical Records Attestation: I reviewed the patient's medical records. Home Medications Current Medication List: was personally reviewed by me Laboratory Data Attestation: I reviewed the patient's lab results. Result diagrams: 05/17/19 20:20 05/17/19 20:20 Lab Results 05/17/19 05/17/19 05/17/19 Range/Units 20:20 20:20 20:20 WBC 7.86 (4.8-10.8) K/uL RBC 4.62 L (4.7-6.1) M/uL Hgb 15.1 (14.0-18.0) g/dL Hct 41.5 L (42-52) % MCV 89.8 (80-100) fL MCH 32.7 (25-34) pg MCHC 36.4 H (32-36) g/dL RDW Std Deviation 41.8 (36.4-46.3) fL RDW Coeff of Anne 12.8 (11.5-14.5) % Plt Count 226 (130-400) K/uL MPV 10.7 H (7.4-10.4) fL Immature Gran % (Auto) 0.1 % Neut % (Auto) 50.0 % Lymph % (Auto) 36.9 % [place] % (Auto) 10.1 % Eos % (Auto) 2.5 % Baso % (Auto) 0.4 % Immature Gran # (Auto) 0.01 (0.00-0.02) K/uL Neut # (Auto) 3.93 (1.4-6.5) K/uL Lymph # (Auto) 2.90 (1.2-3.4) K/uL [place] # (Auto) 0.79 H (0.11-0.59) K/uL Eos # (Auto) 0.20 (0-0.5) K/uL Baso # (Auto) 0.03 (0-0.2) K/uL PT 10.4 (9.0-12.0) Seconds INR 1.0 (0.9-1.1) APTT 22.8 (21.0-31.0) Seconds PTT Ratio 0.8 Sodium 138 (136-145) mmol/L Potassium 3.7 (3.5-5.1) mmol/L Chloride 104 (98-107) mmol/L Carbon Dioxide 26 (21-32) mmol/L Anion Gap 7.0 (3-11) BUN 14 (7-18) mg/dl Creatinine 1.08 (0.6-1.4) mg/dl Est Cr Clr Drug Dosing 96.4 ml/min Est GFR ( Amer) 94.9 Est GFR (Non-Af Amer) 81.9 BUN/Creatinine Ratio 12.6 (10-20) Glucose 206 H (70-99) mg/dl Calcium 9.2 (8.5-10.1) mg/dl Total Bilirubin 0.7 (0.2-1) mg/dl AST 16 (15-37) U/L ALT 28 (12-78) U/L Alkaline Phosphatase 49 (45-117) U/L POC Troponin I (0-0.045) ng/ml Total Protein 7.1 (6.4-8.2) gm/dl Albumin 4.0 (3.4-5.0) gm/dl Globulin 3.1 (2.5-4.0) gm/dl Albumin/Globulin Ratio 1.3 (0.9-2) Lipase 84 (73-393) U/L 05/17/19 05/17/19 Range/Units 21:21 23:02 WBC (4.8-10.8) K/uL RBC (4.7-6.1) M/uL Hgb (14.0-18.0) g/dL Hct (42-52) % MCV (80-100) fL MCH (25-34) pg MCHC (32-36) g/dL RDW Std Deviation (36.4-46.3) fL RDW Coeff of Anne (11.5-14.5) % Plt Count (130-400) K/uL MPV (7.4-10.4) fL Immature Gran % (Auto) % Neut % (Auto) % Lymph % (Auto) % [place] % (Auto) % Eos % (Auto) % Baso % (Auto) % Immature Gran # (Auto) (0.00-0.02) K/uL Neut # (Auto) (1.4-6.5) K/uL Lymph # (Auto) (1.2-3.4) K/uL [place] # (Auto) (0.11-0.59) K/uL Eos # (Auto) (0-0.5) K/uL Baso # (Auto) (0-0.2) K/uL PT (9.0-12.0) Seconds INR (0.9-1.1) APTT (21.0-31.0) Seconds PTT Ratio Sodium (136-145) mmol/L Potassium (3.5-5.1) mmol/L Chloride (98-107) mmol/L Carbon Dioxide (21-32) mmol/L Anion Gap (3-11) BUN (7-18) mg/dl Creatinine (0.6-1.4) mg/dl Est Cr Clr Drug Dosing ml/min Est GFR ( Amer) Est GFR (Non-Af Amer) BUN/Creatinine Ratio (10-20) Glucose (70-99) mg/dl Calcium (8.5-10.1) mg/dl Total Bilirubin (0.2-1) mg/dl AST (15-37) U/L ALT (12-78) U/L Alkaline Phosphatase (45-117) U/L POC Troponin I < 0.03 < 0.03 (0-0.045) ng/ml Total Protein (6.4-8.2) gm/dl Albumin (3.4-5.0) gm/dl Globulin (2.5-4.0) gm/dl Albumin/Globulin Ratio (0.9-2) Lipase (73-393) U/L ECG Data Attestation: I personally reviewed and interpreted this ECG as follows: Indication: chest pain and SOB/dyspnea Rate (beats per minute): 80 Rhythm: normal sinus Findings: + ST depression (Inferior) and + T-wave inversion Comparison ECG Date: from (06/12/18) Change: the following changes noted (inferior changes, looks similar, one in aVL is new) Blood Pressure Blood Pressure Findings: Normal blood pressure MDM Narrative This is a 44-year-old male who presents to the ED with a chief complaint of chest pain. The patient reports retrosternal chest pain and left arm pain that started about 30 minutes prior to arrival. The patient states that he took a nitroglycerin that did not help his pain. He has some associated shortness of breath but no diaphoresis or nausea. The patient has a history of a cardiac stent in the posterior lateral branch of the circumflex artery in 2018. He also was noted to have a 50% RCA stenosis in the mid RCA on his catheterization. The patient has a normal exam. His EKG shows a sinus rhythm with some mild ST elevations in the inferior leads that appears similar to a previous EKG with the exception of T wave inversion in aVL. A second 12-lead EKG was performed that appears similar to the first. This was after nitroglycerin as well as some morphine for his discomfort. The patient appears to have some anxiety on my initial evaluation. His initial troponin was 0.00. CBC and chemistry panel was unremarkable. A chest x-ray was negative for acute disease. The patient was treated with aspirin p.o. A second troponin was 0.00. I spoke with the hospitalist, who will see the patient for further inpatient evaluation and care. Impression & Plan Chest pain : Chest pain Qualifiers: Chest pain type: precordial pain Qualified Code(s): R07.2 - Precordial pain The scribe's documentation has been prepared under my direction and personally reviewed by me in its entirety. I confirm that the note above accurately reflects all work, treatment, procedures, and medical decision making performed by me.
--- NOTE | 2019-05-17 23:41 | History & Physical Report ---
Date of Service May 17, 2019 Assessment & Plan (1) Chest pain: (2) CAD (coronary artery disease): (3) Diabetes mellitus, type II: (4) Obstructive sleep apnea: (5) Tobacco use disorder: (6) Obesity (BMI 30-39.9): Placed under observation on telemetry, Dr. Maverick Shelton will see the patient in consult tomorrow, will continue outpatient medications where appropriate, will get serial troponins. Insulin sliding scale. N.p.o. until after seen by cardiology tomorrow may have sips and chips in his meds. ROS-No Headache, No Visual Changes, No Nausea, No Vomiting, No Fever, No Chills, No Neck Pain or Stiffness, + Chest Pain, No Palpitations, + SOB, No H[place]OOK, No C ough, No Sputum, No Wheezing, No Abdominal Pain, No Diarrhea, No Hematemesis, No Hemoptysis, No Unexpected Weight Loss, No Flank pain, No Melena, No Hematochezia, No Frequency, No Urgency, No Burning, No Hematuria, No Rashes, No Diaphoresis. Appetite is Normal Physical Exam Gen-AAO x 3, NAD, Afebrile, obese Head-NCAT, EOMI, PERRLA, Anicteric Sclera, No Posterior Pharyngeal Erythema Neck-Supple, No JVD, No Thyromegaly, No Masses, No LAD, No Bruits Lungs-Clear to Auscultation Bilaterally, No Rales, No Rhonchi, No Wheezing, No Crepitus Chest-No S4, +S1, +S2, No S3, No Murmurs, No Rubs, No Gallops, No Ectopy Abdomen-Soft, Bowel Sounds Present, Non Tender, obese, non Distended, No Hepatomegaly, No Splenomegaly, No Palpable Masses, No Rebound, No Rigidity, No Guarding Musculoskeletal-Full Range of Motion Bilaterally, No CVAT Extremities-No Cyanosis, No Clubbing, No Edema Nuero-Cranial Nerves II-XII grossly intact, Motor WNL, DTRs WNL, Strength WNL, Non Focal Psych-Normal Mood History of Present Illness 44-year-old male with a past medical history obstructive sleep apnea syndrome, coronary disease with acute HI and stent to his left circumflex, type 2 diabetes, smoking history who presents tonight with chest pain similar to the chest pain he had one year ago which required catheterization and stent. He had a sublingual nitro and some morphine which relieved the pain. He had some EKG changes to include ST elevations and T wave inversions in V1 and aVL. He had 2 sets of negative troponins and the ER doctor ran the case by Dr. Shelton who asked to admit and rule out. Primary Care Provider: Carlos Rider MD Allergies Allergy/AdvReac Type Severity Reaction Status Date / Time Penicillins Allergy Unknown Unknown Unverified 05/17/19 22:21 Home Medications Home Medications Medication Instructions Recorded Confirmed Type aspirin 81 mg PO QAM 11/21/18 05/17/19 History lisinopril 5 mg PO HS 11/21/18 05/17/19 History metformin 1,000 mg PO BID 11/21/18 05/17/19 History metoprolol tartrate 50 mg PO BID 11/21/18 05/17/19 History nitroglycerin [Nitrostat] 0.4 mg SUBLINGUAL DIRECTED PRN 11/21/18 05/17/19 History ticagrelor [Brilinta] 90 mg PO BID 11/21/18 05/17/19 History atorvastatin 40 mg PO QAM 05/17/19 05/17/19 History Past Med/Surg History Medical History Obstructive sleep apnea (Chronic) Acute myocardial infarction (Resolved) CAD (coronary artery disease) (Chronic) "s/p stent to left circumflex 06/10/18" Diabetes mellitus, type II (Chronic) Tobacco use disorder (Chronic) Surgical History H/O hernia repair (Resolved) Social History Preferred Language: Cook Islander Communication Ability: Effective Visual Impairment: No Limitations Hearing Ability: Normal marital status: Current Living Situation: Spouse Feels Safe at Home: Yes Smoking Status: Never smoker Results & Data Vital Signs (Past 12 Hours) Vital Signs Temp Pulse Resp BP Pulse Ox 05/17/19 22:30 76 18 115/80 96 05/17/19 22:20 86 27 H 137/92 95 05/17/19 22:10 80 20 129/87 95 05/17/19 22:00 85 22 142/95 H 94 05/17/19 21:50 92 H 20 139/93 94 05/17/19 21:40 95 H 44 H 140/83 96 05/17/19 21:38 98 H 27 H 137/97 95 05/17/19 21:31 95 H 41 H 94 05/17/19 21:30 98 H 31 H 158/97 H 94 05/17/19 21:25 94 05/17/19 21:20 77 50 H 98 05/17/19 21:19 80 52 H 174/97 H 96 05/17/19 21:11 82 49 H 98 05/17/19 21:01 36.5 C 99 H 26 H 170/106 H 99 Allergies Penicillins Allergy (Unknown, Unverified 05/17/19 22:21) Unknown Height/Weight/Isolation Height 5 ft 6 in Weight 103.6 kg CBC 05/17/19 05/17/19 05/17/19 20:20 20:20 20:20 WBC 7.86 RBC 4.62 L Hgb 15.1 Hct 41.5 L MCV 89.8 MCH 32.7 MCHC 36.4 H RDW Std Deviation 41.8 RDW Coeff of Anne 12.8 Plt Count 226 MPV 10.7 H Immature Gran % (Auto) 0.1 Neut % (Auto) 50.0 Lymph % (Auto) 36.9 Woodward % (Auto) 10.1 Eos % (Auto) 2.5 Baso % (Auto) 0.4 Immature Gran # (Auto) 0.01 Neut # (Auto) 3.93 Lymph # (Auto) 2.90 Woodward # (Auto) 0.79 H Eos # (Auto) 0.20 Baso # (Auto) 0.03 PT 10.4 INR 1.0 APTT 22.8 PTT Ratio 0.8 Sodium 138 Potassium 3.7 Chloride 104 Carbon Dioxide 26 Anion Gap 7.0 BUN 14 Creatinine 1.08 Est Cr Clr Drug Dosing 96.4 Est GFR ( Amer) 94.9 Est GFR (Non-Af Amer) 81.9 BUN/Creatinine Ratio 12.6 Glucose 206 H Calcium 9.2 Total Bilirubin 0.7 AST 16 ALT 28 Alkaline Phosphatase 49 POC Troponin I Total Protein 7.1 Albumin 4.0 Globulin 3.1 Albumin/Globulin Ratio 1.3 Lipase 84 05/17/19 05/17/19 21:21 23:02 WBC RBC Hgb Hct MCV MCH MCHC RDW Std Deviation RDW Coeff of Anne Plt Count MPV Immature Gran % (Auto) Neut % (Auto) Lymph % (Auto) Woodward % (Auto) Eos % (Auto) Baso % (Auto) Immature Gran # (Auto) Neut # (Auto) Lymph # (Auto) Woodward # (Auto) Eos # (Auto) Baso # (Auto) PT INR APTT PTT Ratio Sodium Potassium Chloride Carbon Dioxide Anion Gap BUN Creatinine Est Cr Clr Drug Dosing Est GFR ( Amer) Est GFR (Non-Af Amer) BUN/Creatinine Ratio Glucose Calcium Total Bilirubin AST ALT Alkaline Phosphatase POC Troponin I < 0.03 < 0.03 Total Protein Albumin Globulin Albumin/Globulin Ratio Lipase Chemistry 05/17/19 20:20 Sodium 138 Potassium 3.7 Chloride 104 Carbon Dioxide 26 Anion Gap 7.0 BUN 14 Creatinine 1.08 Glucose 206 H (1) Chest pain Chest pain type: precordial pain Qualified Code(s): R07.2 - Precordial pain
[2019-05-18] MEDS ORDERED: NITROGLYCERIN SL 0.4 MG/TAB TAB SL PRN (01:51)
[2019-05-18] MEDS ORDERED: DEXTROSE 50% 50 ML SYRINGE IV PRN (01:51)
[2019-05-18] MEDS ORDERED: MoRPHine SULFATE 4 MG/ML 1 ML CARP\\VIAL IV PRN (01:51)
[2019-05-18] MEDS ORDERED: ACETAMINOPHEN 325 MG TAB PO PRN (01:51)
[2019-05-18] MEDS ORDERED: GLUCAGON FOR INJ 1 MG VIAL SQ PRN (01:51)
[2019-05-18] MEDS ORDERED: POLYETHYLENE (MIRALAX) 17 GM PACK PO PRN (01:51)
[2019-05-18] MEDS ORDERED: GLUCOSE 40% GEL 15 GM TUBE PO PRN (01:51)
[2019-05-18] MEDS ORDERED: GLUCOSE 10 TABS/TUBE PO PRN (01:51)
[2019-05-18] MEDS ORDERED: CARBOHYDRATES FOR HYPOGLYCEMIA PO PRN (01:51)
[2019-05-18 02:22] LABS: Hematocrit (blood only) 40.8 % (42-52); Hemoglobin 14.3 g/dL (14.0-18.0); Mean Corpuscular Volume 93.2 fL (80-100); Mean Platelet Volume 10.4 fL (7.4-10.4); Platelet Count 223 K/uL (130-400); RDW Coefficient of Variation 12.9 % (11.5-14.5); RDW Standard Deviation 43.9 fL (36.4-46.3); Red Blood Count 4.38 M/uL (4.7-6.1); White Blood Count 7.64 K/uL (4.8-10.8)
[2019-05-18 02:36] LABS: BUN Creatinine Ratio 19.7 (10-20); Calcium 8.5 mg/dl (8.5-10.1); Creatinine Clr Calc Pharmacy 115.4 ml/min; Est GFR (African American) 118.3; Est GFR (Non-African American) 102.1; Potassium 3.7 mmol/L (3.5-5.1)
[2019-05-18] MEDS ORDERED: PHARMACY GLYCEMIC MGMT CONSULT PRN (02:37)
[2019-05-18 03:00] LABS: Troponin I 0.358 ng/ml (0-0.045)
[2019-05-18] MEDS: TICAGRELOR 90 MG TAB PO SCH ×3 (03:29→21:01)
[2019-05-18] MEDS: METOPROLOL TARTRATE 50 MG TAB PO SCH ×3 (03:29→21:01)
[2019-05-18] MEDS: INSULIN ASPART 100 UNITS/ML 3 ML PEN SC SCH ×5 (03:33→21:19)
[2019-05-18] MEDS: HEPARIN SOD 5,000 UNIT/0.5 ML VIAL SQ SCH ×2 (06:02→12:24)
[2019-05-18] MEDS: ATORVASTATIN 40 MG TAB PO SCH (07:50)
[2019-05-18] MEDS: ASPIRIN 81 MG ECTAB PO SCH (07:50)
[2019-05-18] MEDS ORDERED: ASPIRIN 81 MG ECTAB PO SCH (09:00)
[2019-05-18 09:19] LABS: Estimated Average Glucose 163 mg/dl; Hemoglobin A1C 7.3 % (4.5-5.6)
[2019-05-18] MEDS ORDERED: MIDAZOLAM HCL 1 MG/ML 2ML VIAL ONE ×2 (10:11→10:59)
[2019-05-18] MEDS ORDERED: NITROGLYCERIN/D5W 100MCG/ML 20ML SYR ONE (10:12)
[2019-05-18] MEDS ORDERED: NiCARDipine HCL INJ 2.5 MG/ML 10 ML AMP ONE (10:12)
[2019-05-18] MEDS ORDERED: fentaNYL citrate 100 MCG/2 ML VIAL ONE (10:12)
[2019-05-18] MEDS ORDERED: HEPARIN (PORCINE) 1000 UNIT/ML 10 ML (CATH LAB USE ONLY) ONE (10:12)
--- NOTE | 2019-05-18 10:13 | Cardiology Consultation ---
Date of Consultation May 18, 2019 Assessment & Plan (1) Non-ST elevation (NSTEMI) myocardial infarction: (2) CAD (coronary artery disease): (3) Diabetes mellitus, type II: Patient will be given sublingual nitroglycerin x1 now. The risks, benefits, alternatives to cardiac catheterization discussed with both patient and his . They are agreeable to procedure and percutaneous intervention if indicated. He will be taken urgently to the cardiac catheterization lab. Patient is a drug-eluting stent candidate. Further recommendations pending results of coronary angiography. History of Present Illness Reason for Consultation: NSTEMI Requesting Physician: Dr. Jung Attending Physician: Azra Spears, History of Present Illness 44-year-old patient presented to the emergency department with chest pain. Patient developed sudden onset of chest discomfort while sitting and watching television. Discomfort described as a tightness and heaviness radiating to his left arm. He became acutely short of breath. Took aspirin and nitroglycerin at home proceeded to the emergency room. Upon arrival to the ER, patient treated with sublingual nitroglycerin and morphine. Remained pain-free overnight until this morning when pain recurred at a level of 4/10. Patient evaluated at the bedside. Appears comfortable. No dysrhythmias on telemetry. Troponins mildly elevated however trending upward. is present at bedside. Offers no additional concerns/complaints at this time. Current history of myocardial infarction status post stenting of left posterior lateral branch vessel June 2018. Distal circumflex occlusion could not be opened during that procedure. Allergies Allergy/AdvReac Type Severity Reaction Status Date / Time Penicillins Allergy Unknown Unknown Unverified 05/17/19 22:21 Home Medications Home Medications Medication Instructions Recorded Confirmed Type aspirin 81 mg PO QAM 11/21/18 05/17/19 History lisinopril 5 mg PO HS 11/21/18 05/17/19 History metformin 1,000 mg PO BID 11/21/18 05/17/19 History metoprolol tartrate 50 mg PO BID 11/21/18 05/17/19 History nitroglycerin [Nitrostat] 0.4 mg SUBLINGUAL DIRECTED PRN 11/21/18 05/17/19 History ticagrelor [Brilinta] 90 mg PO BID 11/21/18 05/17/19 History atorvastatin 40 mg PO QAM 05/17/19 05/17/19 History Patient History Medical History Obstructive sleep apnea (Chronic) Acute myocardial infarction (Resolved) CAD (coronary artery disease) (Chronic) "s/p stent to left circumflex 06/10/18" Diabetes mellitus, type II (Chronic) Tobacco use disorder (Chronic) Surgical History H/O hernia repair (Resolved) Social History Preferred Language: Telugu Communication Ability: Effective Visual Impairment: No Limitations Hearing Ability: Normal Beliefs That Will Affect Care: None marital status: Current Living Situation: Spouse Current Living Situation Comment: Anson lives at home with and has a daughter in college. Other Information That Helps Us Care for You: No Feels Safe at Home: Yes Safety Concerns: Feels Safe At This Time Smoking Status: Never smoker Tobacco Type: smokeless tobacco Do You Dip or Chew Tobacco: Yes (Approximatly 2-3 cans per week) Second Hand Exposure: No Tobacco Cessation Education Requested by Patient: No (Paient declined) Hx Alcohol Use: Yes Alcohol type: beer Hx Substance Use: Yes substance use type: marijuana Last Used Substance: Unknown Last Used Substance Other:: Anson stated last used approximetly one year ago. Review of Systems Review of Systems: All systems reviewed & are unremarkable except as noted in HPI & below Physical Exam Physical Exam: General: NAD, AAO x3, well nourished. Overweight. HEENT: Normocephalic. Atraumatic. Conjunctiva pink, no scleral icterus. Neck: No carotid bruits, the carotid upstrokes are brisk. No JVD. No HJR Heart: Regular normal S-1 and S-2 no S-3 or S-4 gallop. No murmurs or rub appreciated. PMI is not displaced. No RV heave. Lungs: Clear bilateral without rales , rhonchi, or wheeze. Abdomen: Normal bowel sounds. Soft. Nontender. No masses or organomegaly. No abdominal bruits. Extremities: No clubbing, cyanosis, or edema. Pulses: radial=2/4, Dorsalis pedis =2/4, posterior tibial=2/4. Neuro: Cranial nerves grossly intact. No focal motor deficit. Results & Data Vital Signs (Past 12 Hours) Vital Signs Temp Pulse Pulse Resp BP BP Pulse Ox 05/18/19 07:46 36.5 C 54 L 18 121/74 05/18/19 07:30 61 05/18/19 04:00 36.3 C L 56 L 19 119/79 96 05/18/19 01:31 65 05/18/19 01:16 62 16 117/61 94 05/18/19 01:09 36.4 C L 63 18 125/85 96 05/17/19 23:45 71 18 132/92 96 05/17/19 22:30 76 18 115/80 96 05/17/19 22:20 86 27 H 137/92 95 Laboratory Results Laboratory Results - last 24 hr 05/17/19 05/17/19 05/17/19 20:20 20:20 20:20 WBC 7.86 RBC 4.62 L Hgb 15.1 Hct 41.5 L MCV 89.8 MCH 32.7 MCHC 36.4 H RDW Std Deviation 41.8 RDW Coeff of Anne 12.8 Plt Count 226 MPV 10.7 H Immature Gran % (Auto) 0.1 Neut % (Auto) 50.0 Lymph % (Auto) 36.9 Vernon % (Auto) 10.1 Eos % (Auto) 2.5 Baso % (Auto) 0.4 Immature Gran # (Auto) 0.01 Neut # (Auto) 3.93 Lymph # (Auto) 2.90 Vernon # (Auto) 0.79 H Eos # (Auto) 0.20 Baso # (Auto) 0.03 PT 10.4 INR 1.0 APTT 22.8 PTT Ratio 0.8 Sodium 138 Potassium 3.7 Chloride 104 Carbon Dioxide 26 Anion Gap 7.0 BUN 14 Creatinine 1.08 Est Cr Clr Drug Dosing 96.4 Est GFR ( Amer) 94.9 Est GFR (Non-Af Amer) 81.9 BUN/Creatinine Ratio 12.6 Glucose 206 H POC Glucose Estimat Average Glucose Hemoglobin A1c Calcium 9.2 Total Bilirubin 0.7 AST 16 ALT 28 Alkaline Phosphatase 49 POC Troponin I Troponin I Total Protein 7.1 Albumin 4.0 Globulin 3.1 Albumin/Globulin Ratio 1.3 Lipase 84 05/17/19 05/17/19 05/18/19 21:21 23:02 02:00 WBC RBC Hgb Hct MCV MCH MCHC RDW Std Deviation RDW Coeff of Anne Plt Count MPV Immature Gran % (Auto) Neut % (Auto) Lymph % (Auto) Vernon % (Auto) Eos % (Auto) Baso % (Auto) Immature Gran # (Auto) Neut # (Auto) Lymph # (Auto) Vernon # (Auto) Eos # (Auto) Baso # (Auto) PT INR APTT PTT Ratio Sodium 139 Potassium 3.7 Chloride 106 Carbon Dioxide 27 Anion Gap 6.0 BUN 18 Creatinine 0.90 Est Cr Clr Drug Dosing 115.4 Est GFR ( Amer) 118.3 Est GFR (Non-Af Amer) 102.1 BUN/Creatinine Ratio 19.7 Glucose 145 H POC Glucose Estimat Average Glucose Hemoglobin A1c Calcium 8.5 Total Bilirubin AST ALT Alkaline Phosphatase POC Troponin I < 0.03 < 0.03 Troponin I 0.358 H* Total Protein Albumin Globulin Albumin/Globulin Ratio Lipase 05/18/19 05/18/19 05/18/19 02:00 03:16 06:03 WBC 7.64 RBC 4.38 L Hgb 14.3 Hct 40.8 L MCV 93.2 MCH 32.6 MCHC 35.0 RDW Std Deviation 43.9 RDW Coeff of Anne 12.9 Plt Count 223 MPV 10.4 Immature Gran % (Auto) Neut % (Auto) Lymph % (Auto) Vernon % (Auto) Eos % (Auto) Baso % (Auto) Immature Gran # (Auto) Neut # (Auto) Lymph # (Auto) Vernon # (Auto) Eos # (Auto) Baso # (Auto) PT INR APTT PTT Ratio Sodium Potassium Chloride Carbon Dioxide Anion Gap BUN Creatinine Est Cr Clr Drug Dosing Est GFR ( Amer) Est GFR (Non-Af Amer) BUN/Creatinine Ratio Glucose POC Glucose 122 H 176 H Estimat Average Glucose Hemoglobin A1c Calcium Total Bilirubin AST ALT Alkaline Phosphatase POC Troponin I Troponin I Total Protein Albumin Globulin Albumin/Globulin Ratio Lipase 05/18/19 05/18/19 08:04 08:04 WBC RBC Hgb Hct MCV MCH MCHC RDW Std Deviation RDW Coeff of Anne Plt Count MPV Immature Gran % (Auto) Neut % (Auto) Lymph % (Auto) Vernon % (Auto) Eos % (Auto) Baso % (Auto) Immature Gran # (Auto) Neut # (Auto) Lymph # (Auto) Vernon # (Auto) Eos # (Auto) Baso # (Auto) PT INR APTT PTT Ratio Sodium Potassium Chloride Carbon Dioxide Anion Gap BUN Creatinine Est Cr Clr Drug Dosing Est GFR ( Amer) Est GFR (Non-Af Amer) BUN/Creatinine Ratio Glucose POC Glucose Estimat Average Glucose 163 Hemoglobin A1c 7.3 H Calcium Total Bilirubin AST ALT Alkaline Phosphatase POC Troponin I Troponin I 0.484 H* Total Protein Albumin Globulin Albumin/Globulin Ratio Lipase
--- NOTE | 2019-05-18 10:20 | Pre Anesthesia Assessment ---
Date of Service May 18, 2019 Pre Sedation Assessment Vital Signs Temp Pulse Pulse Resp BP BP Pulse Ox 05/18/19 10:12 60 16 123/75 95 05/18/19 07:46 36.5 C 54 L 18 121/74 05/18/19 07:30 61 05/18/19 04:00 36.3 C L 56 L 19 119/79 96 05/18/19 01:31 65 05/18/19 01:16 62 16 117/61 94 05/18/19 01:09 36.4 C L 63 18 125/85 96 05/17/19 23:45 71 18 132/92 96 05/17/19 22:30 76 18 115/80 96 05/17/19 22:20 86 27 H 137/92 95 05/17/19 22:10 80 20 129/87 95 05/17/19 22:00 85 22 142/95 H 94 05/17/19 21:50 92 H 20 139/93 94 05/17/19 21:40 95 H 44 H 140/83 96 05/17/19 21:38 98 H 27 H 137/97 95 05/17/19 21:31 95 H 41 H 94 05/17/19 21:30 98 H 31 H 158/97 H 94 05/17/19 21:25 94 05/17/19 21:20 77 50 H 98 05/17/19 21:19 80 52 H 174/97 H 96 05/17/19 21:11 82 49 H 98 05/17/19 21:01 36.5 C 99 H 26 H 170/106 H 99 Cardiovascular RRR, no murmur, no edema Respiratory normal respiratory effort, lungs clear to auscultation Pre-Sedation Airway Assessment Smoking Status: Never smoker Mallampati Class: III ASA: ASA4 Procedure Planning Contraindications for Sedation: none Current Medications Reviewed: Yes Notes The planned sedation has been discussed with the patient. Informed Consent was obtained. I have identified the patient, determined the appropriateness of sedation and have assessed the patient immediately prior to the procedure. All medicine(s) and interventions are by my order.
--- NOTE | 2019-05-18 10:28 | Pharmacy Report ---
Glycemic Control Consultation - Date of Service May 18, 2019 - Scope Scope: Glycemic Pharmacist consulted by Dr Jung on 05/18/19 for glycemic control and to write orders per [facility] inpatient glycemic control protocol - Objective Weight: 103.1 kg [place]ecks BSG (last 24hrs): 05/17/19 05/18/19 05/18/19 20:20 02:00 03:16 Glucose 206 H 145 H POC Glucose 122 H 05/18/19 06:03 Glucose POC Glucose 176 H Laboratory Data (last 24hrs): 05/17/19 05/18/19 20:20 02:00 Potassium 3.7 3.7 Carbon Dioxide 26 27 Anion Gap 7.0 6.0 Creatinine 1.08 0.90 Est Cr Clr Drug Dosing 96.4 115.4 HbA1c: Hemoglobin A1c 7.3 % (4.5-5.6) H 05/18/19 08:04 - Recent Pertinent Medications Outpatient Anti-diabetic Regimen: * Metformin 1g PO BID * A1c = 7.3 % 05/18/19 Risk Factors for Insulin Resistance: * Recent Surgery: Cardiac cath today * Diet: NPO - Assessment & Plan Assessment & Plan: ASSESSMENT: * 44 year old male type 2 diabetic admitted with NSTEMI, NPO to go to lab manager today. * Pt is maintained on oral antidiabetic agents as an outpatient * Oral agents are not recommended for inpatient use d/t drug interactions, changing PO intake, and difficulty titrating for acute hyper/hypoglycemia. ADA recommends re-initiating outpatient oral agents 1-2 days prior to discharge if/when appropriate if they were held on admission. * Will hold oral agents for admission and utilize SQ bolus insulin regimen which is the recommended regimen for inpatient glycemic control. * Will initiate weight based insulin dosing for insulin margarita patient and titrate based on BSG trends. PLAN FOR INPATIENT GLYCEMIC CONTROL: * Holding outpatient oral diabetes medications * Bolus insulin * NovoLog per scale ACHS or Q6hrs while NPO * Goal Range: Low 110 mg/dL - High 150 mg/dL * Correction Factor: 25 mg/dL/unit * Nutritional / Prandial insulin per carb ratio of 1 unit per 8 grams CHO consumed * Please note that the plan above was derived based on current level of insulin resistance and hospital stress. These recommendations are appropriate for inpatient admission only. Plan of care upon discharge will need to be reassessed to avoid potential outpatient hypo/hyperglycemia. Thank you.
--- NOTE | 2019-05-18 11:09 | Post Anesthesia Assessment ---
Date of Service May 18, 2019 Post Sedation Assessment Vital Signs Temp Pulse Pulse Resp BP BP Pulse Ox 05/18/19 10:12 60 16 123/75 95 05/18/19 07:46 36.5 C 54 L 18 121/74 05/18/19 07:30 61 05/18/19 04:00 36.3 C L 56 L 19 119/79 96 05/18/19 01:31 65 05/18/19 01:16 62 16 117/61 94 05/18/19 01:09 36.4 C L 63 18 125/85 96 05/17/19 23:45 71 18 132/92 96 05/17/19 22:30 76 18 115/80 96 05/17/19 22:20 86 27 H 137/92 95 05/17/19 22:10 80 20 129/87 95 05/17/19 22:00 85 22 142/95 H 94 05/17/19 21:50 92 H 20 139/93 94 05/17/19 21:40 95 H 44 H 140/83 96 05/17/19 21:38 98 H 27 H 137/97 95 05/17/19 21:31 95 H 41 H 94 05/17/19 21:30 98 H 31 H 158/97 H 94 05/17/19 21:25 94 05/17/19 21:20 77 50 H 98 05/17/19 21:19 80 52 H 174/97 H 96 05/17/19 21:11 82 49 H 98 05/17/19 21:01 36.5 C 99 H 26 H 170/106 H 99 Recovery Score Activity: Moves 4 extremities Respiration: Deep Breath/Cough Circulation: +/-20% PreAnes Value Consciousness: Arouseable (by name) Post Sedation Plan On clinical assessment, the patient appears to have tolerated the sedation without complications. Patient is recovering as anticipated. Patient will continue to be monitored by nursing and may be discharged when sedation discharge criteria are met per below protocol. Upon Completions of procedure and additional 15 minutes continue every 5 minute vital signs and the P.A.R. score; then discharge to a Phase I or Fast Track to Phase II per the following guidelines: * Discharge Patient to appropriate Phase II area if PAR is 8 or greater or return to pre- procedure baseline. The post - procedure orders will be as directed. * If PAR score is less than 8 or not return to pre-procedure baseline then patient will follow Phase I monitoring till PAR is reached for Phase II. The Phase I may be done in procedure room or may call to secure a Phase I area. * If naloxone or flumazenil are used for reversal, hold in Phase I for continued monitoring from when last reversal dose was given for a minimum of 60 minutes or longer pending the nurse and/or physician discretion of patient condition before discharge to Phase II. Please call the Sedation Physician to re-evaluate and complete post-note for discharge to Phase II area. Do NOT discharge from procedure sedation or Phase 1 until post- sedation evalu ation note is complete by procedure /sedation MD Sedation Discharge Instructions to be given to the patient at discharge to home.
--- NOTE | 2019-05-18 11:26 | Cardiac Catheterization ---
Cardiac Cath Procedure Full Procedure Date May 18, 2019 Pre-Procedure Diagnosis Pre-Procedure Diagnosis: Non STEMI AUC Score AUC Score: 8 Post-Procedure Diagnosis Post-Procedure Diagnosis: Severe CAD and Normal Intracardiac Pressures Procedure(s) Performed Procedure(s) Performed: Coronary Angiography and Left Heart Cath Patient Service Coordinator Valentin Shepard DO Urgent Care Nurse Practitioner(s) [place] RTR Estimated Blood Loss Estimated Blood Loss: 5cc Medication(s) Medication(s): Fentanyl, Heparin, Lidocaine 1%, Nicardipine, Nitroglycerin and Versed Summary of Findings 99% distal RCA Hemodynamics Rest Ao:: 96// Final Ao: 104/ LV: 83/05/13 Recommendations Recommendations: PCI without planned CABG Specimens Specimens: None Radiation Exposure (mGy) 1178 Contrast (mls) 30 Fluids (cc crystalloids) Fluids (cc crystalloids): 38cc Nss Anesthesia Moderate Sedation. Start 1037. End 1059. Sedation Monitor: Akosua RN Procedural Complication(s) None ACC Data: Bandsaw Operator Cardiac Status Clinical evaluation leading to the procedure CAD Presenation: Non STEMI Anginal Classification: CCS IV Heart Failure: No Cardiogenic Shock within 24 Hours: No Cardiac Arrest within 24 Hours: No Imaging Studies Past 6 Months: No Stress Studies Past 6 Months: No STEMI OR Non-STEMI Symptom Onset Date: 05/17/19 Symptom Onset Time: 19:31 Thrombolytics: No Coronary Anatomy Dominant: Right Left Main (% Stenosis): Normal LAD (% Stenosis): Proximal (30% at bifurcation of D1), Mid (10%) and Distal (10%) D1 (% Stenosis): Ostial (20%) Circumflex (% Stenosis): Mid (10%) and Distal (100%, fills via [id number] collaterals arising from the right coronary artery ) OM1 (% Stenosis): Normal (small 1.0mm vessel) OM2 (% Stenosis): Proximal (20%) L PL1 (% Stenosis): Proximal (patent stent) RCA (% Stenosis): Mid (10%) and Distal (99%) R PDA (% Stenosis): Normal R PL1 (% Stenosis): Normal (Gives rise to right to left collaterals filling the distal left circumflex) AM (% Stenosis): Ostial (20%, MARCOS 2 flow) Ramus (% Stenosis): Normal Diagnostic Physicians Name: Valentin Shepard DO Closure Device Recommendations: PCI without planned CABG
--- NOTE | 2019-05-18 11:44 | Post Anesthesia Assessment ---
Date of Service May 18, 2019 Post Sedation Assessment Vital Signs Temp Pulse Pulse Resp BP BP Pulse Ox 05/18/19 10:12 60 16 123/75 95 05/18/19 07:46 36.5 C 54 L 18 121/74 05/18/19 07:30 61 05/18/19 04:00 36.3 C L 56 L 19 119/79 96 05/18/19 01:31 65 05/18/19 01:16 62 16 117/61 94 05/18/19 01:09 36.4 C L 63 18 125/85 96 05/17/19 23:45 71 18 132/92 96 05/17/19 22:30 76 18 115/80 96 05/17/19 22:20 86 27 H 137/92 95 05/17/19 22:10 80 20 129/87 95 05/17/19 22:00 85 22 142/95 H 94 05/17/19 21:50 92 H 20 139/93 94 05/17/19 21:40 95 H 44 H 140/83 96 05/17/19 21:38 98 H 27 H 137/97 95 05/17/19 21:31 95 H 41 H 94 05/17/19 21:30 98 H 31 H 158/97 H 94 05/17/19 21:25 94 05/17/19 21:20 77 50 H 98 05/17/19 21:19 80 52 H 174/97 H 96 05/17/19 21:11 82 49 H 98 05/17/19 21:01 36.5 C 99 H 26 H 170/106 H 99 Recovery Score Activity: Moves 4 extremities Respiration: Deep Breath/Cough Circulation: +/-20% PreAnes Value Consciousness: Fully Awake Oxygen Saturation: O2 needed for >90% Discharge Sedation Level of Care: Fast Track Phase II Post Sedation Plan On clinical assessment, the patient appears to have tolerated the sedation without complications. Patient is recovering as anticipated. Patient will continue to be monitored by nursing and may be discharged when sedation discharge criteria are met per below protocol. Upon Completions of procedure and additional 15 minutes continue every 5 minute vital signs and the P.A.R. score; then discharge to a Phase I or Fast Track to Phase II per the following guidelines: * Discharge Patient to appropriate Phase II area if PAR is 8 or greater or return to pre- procedure baseline. The post - procedure orders will be as directed. * If PAR score is less than 8 or not return to pre-procedure baseline then patient will follow Phase I monitoring till PAR is reached for Phase II. The Phase I may be done in procedure room or may call to secure a Phase I area. * If naloxone or flumazenil are used for reversal, hold in Phase I for continued monitoring from when last reversal dose was given for a minimum of 60 minutes or longer pending the nurse and/or physician discretion of patient condition before discharge to Phase II. Please call the Sedation Physician to re-evaluate and complete post-note for discharge to Phase II area. Do NOT discharge from procedure sedation or Phase 1 until post- sedation evaluation note is complete by procedure /sedation MD Sedation Discharge Instructions to be given to the patient at discharge to home.
--- NOTE | 2019-05-18 11:55 | Cardiac Catheterization ---
Cardiac Cath Procedure Full Procedure Date May 18, 2019 Pre-Procedure Diagnosis Pre-Procedure Diagnosis: Non STEMI AUC Score AUC Score: 8 Post-Procedure Diagnosis Post-Procedure Diagnosis: Severe CAD and Successful PCI Procedure(s) Performed Procedure(s) Performed: Coronary Angiography and Drug Eluting Stent Rv Repair Technician Shashank Shelton MD Machine Marker(s) [place] RTR Estimated Blood Loss Estimated Blood Loss: 10 Medication(s) Medication(s): Fentanyl, Heparin, Lidocaine 1%, Nicardipine, Nitroglycerin and Versed Medication(s): Ticagrelor Summary of Findings Indication: High-risk NSTEMI Access: 6Fr right radial artery Catheters: AR1 guide Findings: For full details of patient's coronary angiography please cath report dictated by Dr. Shepard. Briefly, patient found to have severe single vessel disease with a 99 % stenosis involving the mid to distal RCA. Decision to proceed with PCI. -- PCI -- Antithrombotic therapy: Heparin, ticagrelor Procedure: RCA cannulated with AR-1 guide Tariff Supervisor 50 wire passed across lesion into distal vessel RCA lesion predilated with 2.5 compliant balloon Dilated lesion stented with 2.75 x 22 mL [place] drug-eluting stent Stent post-dilated with 3.0 noncompliant balloon IC vasodilators administered for spasm Post procedure MARCOS 3 flow, stent well expanded with minimal residual stenosis and no apparent cardiac complications. Arterial Closure: TR band Summary: 1. Successful PCI of latemid RCA with single drug-eluting stent (2.75 x 22 mm [place]; postdilated with 3.0 NC balloon). Recommendations: To PCU for continued monitoring Continue dual-antiplatelet therapy with aspirin, ticagrelor Continue statin, and ASCVD risk factor modification Consult cardiac Rehab Hemodynamics Rest Ao:: 97/64/81 Final Ao: 112/76/94 LV: -- Recommendations Recommendations: PCI without planned CABG Specimens Specimens: None Radiation Exposure (mGy) 3169 Contrast (mls) 125 Fluids (cc crystalloids) Fluids (cc crystalloids): 70 Drains Drains: none Anesthesia moderate Procedural Complication(s) None Disposition PCU ACC Data: Clinical Psychologist Licensed Cardiac Status Clinical evaluation leading to the procedure CAD Presenation: Non STEMI Anginal Classification: CCS IV Heart Failure: No Cardiogenic Shock within 24 Hours: No Cardiac Arrest within 24 Hours: No Imaging Studies Past 6 Months: Yes Stress Studies Past 6 Months: No Diagnostic Physicians Name: Shashank Shelton MD Status: Elective Closure Device Percutaneous Entry Location: Radial Closure Device: Radial Band Recommendations: PCI without planned CABG PCI Indication: PCI for high risk Non-DIANNE Lesion Segment Name: mid RCA Culprit Artery: Yes Stenosis Prior to Rx (%): 99 Chronic Total Occlusion: No IVUS: No FFR: No Pre-Procedure MARCOS Flow: 2 Previously Treated Lesion: No Lesion Complexity: Non-High/Non-C Lesion Length (mm): 15 Thrombus Present: Yes Bifurcation Lesion: No Guidewire Across Lesion: Stenosis Post-Procedure (%): 0 Post-Procedure MARCOS Flow: 3 Devices(s) Deployed: Yes Yes Intraprocedure Events Significant Disection: No Perforation: No
[2019-05-18] MEDS ORDERED: SODIUM CHLORIDE 0.9% 1000ML 1,000 ML IV SCH (12:00)
--- NOTE | 2019-05-18 18:14 | Hospitalist Progress Note ---
Date of Service May 18, 2019 Assessment & Plan (1) Non-ST elevation (NSTEMI) myocardial infarction: Presented with index angina. Elevating troponin. Cardiac catheterization was performed today with drug-eluting stent to RCA. He is recovering well in the room. Continue medical management of CAD including aspirin 81, lisinopril 5, Lopressor 50 mill grams p.o. twice daily, ticagrelor 90 mg twice daily, Lipitor 40 mg p.o. every morning. (2) CAD (coronary artery disease): Continue medical management as above (3) Diabetes mellitus, type II: Fingerstick glucose is controlled, hemoglobin A1c is 7.3 this admission. Continue insulin sliding scale with carb coverage. (4) Obstructive sleep apnea: Patient states he does not use CPAP. (5) Tobacco use disorder: Strongly recommend quitting smoking. (6) Obesity (BMI 30-39.9): (7) DVT prophylaxis: Cath performed today. Will start Lovenox in a.m. Full code Disposition-to home after cardiology clearance Azra Spears DO [facility] Hospitalist Subjective 44-year-old man with known CAD who is an active smoker and a diabetic presented with index angina overnight. EKG did not reveal evidence of ST elevation, however troponin was elevated and continued to rise overnight. Chest pain was minimal but he was taken to cath and given a drug-eluting stent to the RCA. He is recovering in the room and doing well. He denies any chest pain at this time or shortness of breath. Review of Systems Review of Systems: All systems reviewed & are unremarkable except as noted in HPI & below Physical Exam Physical Exam: CONSTITUTIONAL: WNWD, vitals as above, generally well- appearing EYES: normal conjunctivae, no scleral icterus ENT: MMM RESPIRATORY: clear to auscultation bilaterally, no crackles, rales or wheezes, normal respiratory effort CARDIOVASCULAR: regular rate and rhythm, S1 and 2 heard without murmurs, gallops or rubs, no JVD, no peripheral edema GASTROINTESTINAL: normal bowel sounds, soft, nontender, nondistended MUSCULOSKELETAL: strength 5/5 throughout, head is normocephalic and atraumatic SKIN: warm and dry, radial tourniquet in place on LUE NEUROLOGIC: CN 2-12 grossly intact, no sensory deficit, normal cognition, normal speech, no gross focal deficits. PSYCHIATRIC: alert cooperative and oriented to person, place and time. Results & Data Vital Signs (Past 12 Hours) Vital Signs Temp Pulse Resp BP BP Pulse Ox 05/18/19 17:09 64 16 121/81 95 05/18/19 15:37 37.1 C 56 L 16 124/72 97 05/18/19 15:35 36.5 C 59 L 18 115/78 96 05/18/19 14:00 57 L 16 106/70 97 05/18/19 13:44 62 14 115/78 96 05/18/19 13:00 60 15 117/80 97 05/18/19 12:29 69 16 124/88 93 05/18/19 12:15 67 16 112/73 95 05/18/19 12:00 36.3 C L 54 L 16 120/79 95 05/18/19 10:12 60 16 123/75 95 05/18/19 07:46 36.5 C 54 L 18 121/74 05/18/19 07:30 61 Laboratory Results Short CBC 05/17/19 05/18/19 Range/Units 20:20 02:00 WBC 7.86 7.64 (4.8-10.8) K/uL Hgb 15.1 14.3 (14.0-18.0) g/dL Hct 41.5 L 40.8 L (42-52) % Plt Count 226 223 (130-400) K/uL BMP 05/17/19 05/18/19 20:20 02:00 Sodium 138 139 Potassium 3.7 3.7 Chloride 104 106 Carbon Dioxide 26 27 BUN 14 18 Creatinine 1.08 0.90 Glucose 206 H 145 H Calcium 9.2 8.5 Cardiac Enzymes 05/18/19 05/18/19 Range/Units 02:00 08:04 Troponin I 0.358 H* 0.484 H* (0-0.045) ng/ml Liver Function 05/17/19 Range/Units 20:20 Total Bilirubin 0.7 (0.2-1) mg/dl AST 16 (15-37) U/L ALT 28 (12-78) U/L Alkaline Phosphatase 49 (45-117) U/L Albumin 4.0 (3.4-5.0) gm/dl Medications Administered Current Inpatient Medications Acetaminophen (Tylenol) 650 mg PO Q4H PRN PRN Reason: Pain or Fever Stop: 06/17/19 01:50 Aspirin (Ecotrin Ectab) 81 mg PO QAM [facility] Stop: 06/17/19 08:59 Last Admin: 05/18/19 07:50 Dose: 81 mg Documented by: Atorvastatin Calcium (Lipitor) 40 mg PO QAM [facility] Stop: 06/17/19 08:59 Last Admin: 05/18/19 07:50 Dose: 40 mg Documented by: Dextrose (Dextrose 50%) 25 - 50 ml IV UD PRN; Protocol PRN Reason: Hypoglycemia Protocol Stop: 06/17/19 01:50 Glucagon (Glucagen) 1 mg SQ UD PRN; Protocol PRN Reason: Hypoglycemia Protocol Stop: 06/17/19 01:50 Glucose (Glucose 40%) 15 - 30 gm PO UD PRN; Protocol PRN Reason: Hypoglycemia Protocol Stop: 06/17/19 01:50 Glucose (Dex4 Glucose) 4 - 8 tabs PO UD PRN; Protocol PRN Reason: Hypoglycemia Protocol Stop: 06/17/19 01:50 Heparin Sodium (Porcine) (Heparin Sodium (Porcine)) 5,000 units SQ Q8 JUAN C Stop: 06/17/19 05:59 Last Admin: 05/18/19 12:24 Dose: 5,000 units Documented by: Sodium Chloride (Nss 1000ml) 1,000 mls @ 100 mls/hr IV .Q10H JUAN C Stop: 05/18/19 19:29 Last Admin: 05/18/19 12:22 Dose: 100 mls/hr Documented by: Insulin Aspart (Novolog Flexpen) 0 units SC ACHS JUAN C; Protocol Stop: 06/17/19 16:29 Last Admin: 05/18/19 17:12 Dose: Not Given Documented by: Lisinopril (Zestril) 5 mg PO HS [facility] Stop: 06/17/19 20:59 Metoprolol Tartrate (Lopressor) 50 mg PO BID JUAN C Stop: 06/17/19 01:50 Last Admin: 05/18/19 07:49 Dose: 50 mg Documented by: Miscellaneous (Carbohydrates For Hypoglycemia) 15 - 30 gm PO UD PRN PRN Reason: Hypoglycemia Treatment Stop: 06/17/19 01:50 Miscellaneous Information (Consult Glycemic Management Pharmacy) 1 ea N/A UD PRN; Protocol PRN Reason: Consult Stop: 06/17/19 02:36 Morphine Sulfate (Morphine Sulfate) 4 mg IV Q4 PRN PRN Reason: Pain Stop: 06/01/19 01:50 Nitroglycerin (Nitrostat) 0.4 mg SL UD PRN PRN Reason: Chest Pain Stop: 06/17/19 01:50 Last Admin: 05/18/19 10:10 Dose: 0.4 mg Documented by: Polyethylene Glycol (Miralax Powder Packet) 17 gm PO DAILY PRN PRN Reason: Constipation Stop: 06/17/19 01:50 Ticagrelor (Brilinta) 90 mg PO BID JUAN C Stop: 06/17/19 01:50 Last Admin: 05/18/19 07:49 Dose: 90 mg Documented by:
[2019-05-18] MEDS ORDERED: LISINOPRIL 5 MG TAB PO SCH (21:00)
[2019-05-19 08:56] LABS: Hematocrit (blood only) 42.1 % (42-52); Hemoglobin 15.3 g/dL (14.0-18.0); Mean Corpuscular Hgb Conc 36.3 g/dL (32-36); Mean Corpuscular Volume 92.1 fL (80-100); Mean Platelet Volume 10.3 fL (7.4-10.4); Platelet Count 212 K/uL (130-400); RDW Coefficient of Variation 12.9 % (11.5-14.5); RDW Standard Deviation 43.1 fL (36.4-46.3); Red Blood Count 4.57 M/uL (4.7-6.1); White Blood Count 6.44 K/uL (4.8-10.8)
[2019-05-19] MEDS ORDERED: ENOXAPARIN INJ 40 MG/0.4 ML SYR SQ SCH (09:00)
[2019-05-19] MEDS: METOPROLOL TARTRATE 50 MG TAB PO SCH (09:16)
[2019-05-19] MEDS: TICAGRELOR 90 MG TAB PO SCH (09:16)
[2019-05-19] MEDS: ASPIRIN 81 MG ECTAB PO SCH (09:16)
[2019-05-19] MEDS: ATORVASTATIN 40 MG TAB PO SCH (09:16)
[2019-05-19] MEDS: INSULIN ASPART 100 UNITS/ML 3 ML PEN SC SCH ×3 (09:20→17:03)
[2019-05-19 09:30] LABS: BUN Creatinine Ratio 17.5 (10-20); Calcium 8.5 mg/dl (8.5-10.1); Creatinine Clr Calc Pharmacy 131.5 ml/min; Est GFR (African American) 124.8; Est GFR (Non-African American) 107.7
--- NOTE | 2019-05-19 10:40 | Cardiology Progress Note ---
Date of Service May 19, 2019 Assessment & Plan (1) Non-ST elevation (NSTEMI) myocardial infarction: (2) S/P right coronary artery (RCA) stent placement: (3) CAD (coronary artery disease): (4) Diabetes mellitus, type II: Drug-eluting stent implant to the right coronary artery without complication 05/18/2019. Recommend continuing aspirin and Brilinta for minimum of 6 months post drug-eluting stent implantation however, dual antiplatelet therapy will likely be continued for longer duration given patient's premature CAD with recurrent NV. Recommend titration of atorvastatin to 80 mg daily. Continue metoprolol 50 mg twice daily and lisinopril 5 mg daily. Blood pressure well controlled. Follow-up with primary care regarding diabetes management. Patient may be discharged home today after resting 2D transthoracic echocardiogram complete. Outpatient cardiology follow-up in 2 weeks. Subjective Patient seen and examined at the bedside. No recurrent chest discomfort overnight. No dysrhythmias on telemetry demonstrating sinus bradycardia. Blood pressure controlled. Tolerating current medications. Repeat ECG performed this a.m. demonstrates no significant ST changes. Resting 2D transthoracic echocardiogram pending at this time. Review of Systems Review of Systems: All systems reviewed & are unremarkable except as noted in HPI & below Physical Exam Physical Exam: General: NAD, AAO x3, well nourished. HEENT: Normocephalic. Atraumatic. Conjunctiva pink, no scleral icterus. Neck: No carotid bruits, the carotid upstrokes are brisk. No JVD. No HJR Heart: Regular normal S-1 and S-2 no S-3 or S-4 gallop. No murmurs or rub appreciated. PMI is not displaced. No RV heave. Lungs: Clear bilateral without rales , rhonchi, or wheeze. Abdomen: Normal bowel sounds. Soft. Nontender. No masses or organomegaly. No abdominal bruits. Extremities: No clubbing, cyanosis, or edema. Pulses: radial=2/4, Dorsalis pedis =2/4, posterior tibial=2/4. Neuro: Cranial nerves grossly intact. No focal motor deficit. Results & Data Vital Signs (Past 12 Hours) Vital Signs Temp Pulse Resp BP Pulse Ox 05/19/19 08:00 36.8 C 62 18 132/65 96 05/19/19 04:00 36.5 C 55 L 18 114/72 97 05/18/19 23:44 36.4 C L 55 L 17 110/74 95 Laboratory Results Laboratory Results - last 24 hr 05/18/19 05/18/19 05/18/19 11:33 12:21 13:44 WBC RBC Hgb Hct MCV MCH MCHC RDW Std Deviation RDW Coeff of Anne Plt Count MPV Activ Coag Time Kaolin 208 H Sodium Potassium Chloride Carbon Dioxide Anion Gap BUN Creatinine Est Cr Clr Drug Dosing Est GFR ( Amer) Est GFR (Non-Af Amer) BUN/Creatinine Ratio Glucose POC Glucose 132 H Calcium Troponin I 0.490 H* 05/18/19 05/18/19 05/19/19 17:06 20:22 07:32 WBC RBC Hgb Hct MCV MCH MCHC RDW Std Deviation RDW Coeff of Anne Plt Count MPV Activ Coag Time Kaolin Sodium Potassium Chloride Carbon Dioxide Anion Gap BUN Creatinine Est Cr Clr Drug Dosing Est GFR ( Amer) Est GFR (Non-Af Amer) BUN/Creatinine Ratio Glucose POC Glucose 115 H 114 H 139 H Calcium Troponin I 05/19/19 05/19/19 08:38 08:38 WBC 6.44 RBC 4.57 L Hgb 15.3 Hct 42.1 MCV 92.1 MCH 33.5 MCHC 36.3 H RDW Std Deviation 43.1 RDW Coeff of Anne 12.9 Plt Count 212 MPV 10.3 Activ Coag Time Kaolin Sodium 140 Potassium 4.0 Chloride 108 H Carbon Dioxide 26 Anion Gap 6.0 BUN 14 Creatinine 0.79 Est Cr Clr Drug Dosing 131.5 Est GFR ( Amer) 124.8 Est GFR (Non-Af Amer) 107.7 BUN/Creatinine Ratio 17.5 Glucose 153 H POC Glucose Calcium 8.5 Troponin I
--- NOTE | 2019-05-19 14:25 | Pharmacy Report ---
Pharmacy Glycemic Short Note 2 - Date of Service May 19, 2019 - Glycemic Short BSG Results (Last 24 hours): 05/18/19 05/18/19 05/19/19 17:06 20:22 07:32 Glucose POC Glucose 115 H 114 H 139 H 05/19/19 05/19/19 08:38 11:17 Glucose 153 H POC Glucose 190 H OUTPATIENT ANTIDIABETIC REGIMEN: * Metformin 1 gm BID * A1c 7.3% on 05/18/19 ASSESSMENT: * POD #1 s/p cardiac cath * BSGs have ranged from 114-190 mg/dL on Novolog * Pre-lunch BSG elevated secondary to late administration of AM Novolog * Patient to be discharged later today PLAN FOR INPATIENT GLYCEMIC CONTROL: * Continue to hold outpatient oral diabetes medications - resume metformin on discharge (wait 48 hrs after contrast, if administered) * Basal insulin * None * Bolus insulin * NovoLog per scale ACHS or Q6hrs while NPO * Goal Range: Low 110 mg/dL - High 140 mg/dL * Correction Factor: 25 mg/dL/unit * Nutritional / Prandial insulin per carb ratio of 1 unit per 8 grams CHO consumed
--- NOTE | 2019-05-19 17:05 | Discharge Summary ---
Date of Service May 19, 2019 Admission HPI Per Admitting Provider 44-year-old male with a past medical history obstructive sleep apnea syndrome, coronary disease with acute NV and stent to his left circumflex, type 2 diabetes, smoking history who presents tonight with chest pain similar to the chest pain he had one year ago which required catheterization and stent. He had a sublingual nitro and some morphine which relieved the pain. He had some EKG changes to include ST elevations and T wave inversions in V1 and aVL. He had 2 sets of negative troponins and the ER doctor ran the case by Dr. Shelton who asked to admit and rule out. Admission Exam Per Admitting Provider Physical Exam Gen-AAO x 3, NAD, Afebrile, obese Head-NCAT, EOMI, PERRLA, Anicteric Sclera, No Posterior Pharyngeal Erythema Neck-Supple, No JVD, No Thyromegaly, No Masses, No LAD, No Bruits Lungs-Clear to Auscultation Bilaterally, No Rales, No Rhonchi, No Wheezing, No Crepitus Chest-No S4, +S1, +S2, No S3, No Murmurs, No Rubs, No Gallops, No Ectopy Abdomen-Soft, Bowel Sounds Present, Non Tender, obese, non Distended, No Hepatomegaly, No Splenomegaly, No Palpable Masses, No Rebound, No Rigidity, No Guarding Musculoskeletal-Full Range of Motion Bilaterally, No CVAT Extremities-No Cyanosis, No Clubbing, No Edema Nuero-Cranial Nerves II-XII grossly intact, Motor WNL, DTRs WNL, Strength WNL, Non Focal Psych-Normal Mood Principal Diagnosis NSTEMI Discharge Data Allergies Allergy/AdvReac Type Severity Reaction Status Date / Time Penicillins Allergy Unknown Unknown Unverified 05/17/19 22:21 Consultations 05/17/19 23:26 ED Decision to Admit Stat 05/18/19 01:51 Consult Cardiology Routine 05/18/19 12:00 Consult Cardiac Rehabilitation Routine Procedures Performed Operation Date: 05/18/19 09:00 Actual Procedures s Cineradiography w/Routine Exam - Valentin Shepard, p Cath, Left with Cors and Vent - Valentin Shepard, DO p Drug Eluting Stent SGl Vessel - Patric Shelton MD Ordered Studies 05/18/19 10:13 CL Cath Imgs for PACS use only Routine Hospital Course (1) Non-ST elevation (NSTEMI) myocardial infarction: Presented with index angina. Elevating troponin. Cardiac catheterization was performed with drug-eluting stent to RCA. Recovered well. Continue medical management of CAD including aspirin 81, lisinopril 5, Lopressor 50 mg p.o. twice daily, ticagrelor 90 mg twice daily, Lipitor 40mg was increased to 80mg daily at discharge. (2) CAD (coronary artery disease): Continue medical management as above (3) Diabetes mellitus, type II: Insulin sliding scale with carb coverage used in the hospital with BSG in goal range. Hemoglobin A1c is 7.3 this admission. Restarted metformin at discharge. (4) Obstructive sleep apnea: Patient states he does not use CPAP. (5) Tobacco use disorder: Strongly recommend quitting smoking. (6) Obesity (BMI 30-39.9): At time of discharge a face to face examination was performed revealing a hemodynamically stable patient who was afebrile. He was ambulating and mentating at baseline and was tolerating PO. A physical exam was performed and revealed no complication at the R radial catheterization site, and was otherwise unremarkable. He was discharged in stable condition with close primary care followup recommended. Total Time Total Time Spent Total Time Spent (In Minutes): 60 Total Time Includes: Examination of the Patient, Discharge Planning, Medication Reconciliation and Communication With Other Providers Discharge Plan Discharge Items Patient Disposition: Home - Self-Care Reason For Visit: CHEST PAIN Discharge Diagnosis: NSTEMI Condition: Good Discharge Goals: Improve disease control Activity: Resume your previous activity Non-emergency contact: Primary Care Provider Call non-emergency contact if: you have any medication questions, your symptoms worsen, your pain is not controlled, your pain is worsening, your pain is unusual for you and you have a fever Follow-up/Referrals: Carlos Rider MD [Primary Care Provider] - Diet: Low Sodium (2gm) Addtl Provider Instructions: ACTIVITY RECOMMENDATIONS: Excess manipulation of the wrist should be avoided for the next 24-48 hours. * No lifting over 2 pounds (approximately a 1/2 gallon of milk) with the utilized arm for 24 hours. * No strenuous activity such as bowling or tennis for 3 days. * Keep the site of the procedure covered with a bandage for 24 hours. *You may shower the day after the procedure. Do not take a tub bath or submerge the puncture site in water for the next 3 days. *Do not operate any motorized equipment for 3 days. SPECIAL CARE INSTRUCTIONS: The site may be slightly bruised and sore following your procedure. Should any of the following occur, contact the Dr. who performed your procedure. 1. Redness/inflammation, swelling, chills, or fever, or colored drainage at procedure site within 3-7 days after your procedure. 2. Coldness, discoloration, ongoing numbness, severe pain, or swelling. Expect mild tingling of hand and tenderness at the puncture site for up to three days. If this persists beyond three days, or other symptoms develop, notify the Dr. who performed your procedure. BLEEDING: If the procedure site on your wrist begins to bleed, do not panic 1. Place 1 or 2 fingers firmly just slightly above the insertion site to stop the bleeding. You may be able to feel your pulse as you hold pressure. 2. Lift your finger after 5 minutes to see if the bleeding has stopped. 3. Once the bleeding has stopped, gently wipe the wrist area clean with a bandage. * If the bleeding from your wrist does not stop after 10 minutes, or if there is a large amount of bleeding or spurting, call 911 (do not drive yourself to the hospital). SKIN IRRITATION: * You may experience some redness and/or swelling in the area where radiation was administered. If any skin irritation occurs, please contact your family physician. Please take all medications as instructed on discharge list below. NEW MEDICATIONS: -INCREASED LIPITOR FROM 40MG TO 80MG DAILY DO NOT START METFORMIN AGAIN UNTIL 05/20/19 Please follow-up with your primary care physician within one week of discharge: 05/23/2019 11:40 AM Carlos Rider MD [facility] PCP FOLLOW-UP: to ensure things are going well post-cardiac catheterization and post heart attack It was a pleasure taking care of you! Please call if you have any questions or problems. You can reach a [facility] hospitalist on duty at [facility] 24 hours a day by calling [phone]. Take care of yourself. Azra Spears, DO [facility] Hospitalist Prescriptions: New atorvastatin 40 mg Tablet 80 mg PO QAM Qty: 30 RF: 3 Continued aspirin 81 mg Tablet,Delayed Release (Dr/Ec) 81 mg PO QAM RF: 0 metformin 1,000 mg tablet 1,000 mg PO BID RF: 0 metoprolol tartrate 50 mg tablet 50 mg PO BID RF: 0 nitroglycerin [Nitrostat] 0.4 mg Tablet, Sublingual 0.4 mg Sublingual DIRECTED PRN (Reason: Chest Pain) RF: 0 lisinopril 5 mg tablet 5 mg PO HS RF: 0 ticagrelor 90 mg tablet 90 mg PO BID RF: 0 Discontinued atorvastatin 40 mg tablet 40 mg PO QAM RF: 0 Stand-Alone Forms: Call Back Authorization, [facility], Work/School Release (Inpt) Prisca/Other Patient Handouts: Diabetes Fpc Complications, Diabetes Resources, Diabetes Type 2 Coping, Blood Sugar Check, Diabetes Healthy Meals, Diabetes Carbs, Diabetes Exercise Benefits, Diabetes Exercise Get Started, Diabetes Activity Tips, Diabetes Living Life Discharge Orders: Discharge Order (Routine); Ordered 05/19/19 Ordered By: Azra Spears Admission Data Admit Date/Time: 05/18/19 17:51 Attending Provider: Azra Spears Admit Provider: Jose Jung Primary Care Provider: Carlos Rider Other Providers: Valentin Shepard Service: Telemetry Other Interventions: Discharge Summary Assessment (RN) Last Done: 05/19/19 17:20 DC Date/Time DO NOT enter until pt leaves facility: 05/19/19 17:41
[2019-05-20] MEDS ORDERED: ATORVASTATIN 40 MG TAB PO SCH (09:00)
== END 2019-05-19 17:41 | disposition home or self-care (01) | DRG 247 ==
LOC: ED 21:00 → 2S 21:00
DX: G47.33 Obstructive sleep apnea (adult) (pediatric); Z79.899 Other long term (current) drug therapy; I25.10 Atherosclerotic heart disease of native coronary artery without angina pectoris; E66.9 Obesity, unspecified; I21.4 Non-ST elevation (NSTEMI) myocardial infarction; Z95.5 Presence of coronary angioplasty implant and graft; Z68.36 Body mass index [BMI] 36.0-36.9, adult; I25.2 Old myocardial infarction; E11.9 Type 2 diabetes mellitus without complications; Z79.84 Long term (current) use of oral hypoglycemic drugs; Z79.82 Long term (current) use of aspirin; F17.200 Nicotine dependence, unspecified, uncomplicated; Z88.0 Allergy status to penicillin